=== PATIENT | female | born 1975 | race Caucasian/White ===

== ENCOUNTER 2024-09-06 02:18 | Inpatient (IN) ==
--- OUTSIDE RECORDS SUMMARY | 2024-09-06 02:25 | External Medical Summary | Summary of Care ---
Author Name Unknown Organization [facility] [address] [facility] [address] Phone [phone] Care Team Providers Care Swaging Machine Operator Name Role Phone Lu Martinez PA-C Primary Care Provider [phone] Reason for Visit * Reason Comments eRx-Medication Refill Encounter Details Date Type Department Care Team (Late st Contact Info) Description 05/24/2024 Refill Family Practice [facility] [address] [facility] [place] [address] Lu Martinez PA-C [address] [facility] [place] [address] Encounter for initial prescription of contraceptive pills Allergies No known active allergiesdocumented as of this encounter (statuses as of 05/26/2024) Medications Medication Sig Dispensed Refills Start Date End Date Status Multiple Vitamin (MULTI VITAMIN DAILY) TABS Take by mouth. Active Levothyroxine Sodium 175 MCG Oral Tablet (Levoxyl)Indication s:Acquired hypothyroidism TAKE 1 TABLET BY MOUTH IN THE MORNING AT LEAST 30 MIN PRIOR TO BREAKFAST OR OTHER MEDS 90 Tablet 3 10/02/2023 Active Tri-Sprintec 0.18/0.215/0.25 MG-35 MCG Oral Tablet (Norgestim-Eth Estrad Triphasic)Indicatio ns:Encounter for initial prescription of contraceptive pills TAKE 1 TABLET BY MOUTH ONCE DAILY IN THE MORNING 28 Tablet 11 05/26/2024 Active Tri-Sprintec 0.18/0.215/0.25 MG-35 MCG Oral Tablet (Norgestim-Eth Estrad Triphasic)Indicatio ns:Encounter for initial prescription of contraceptive pills TAKE 1 TABLET BY MOUTH ONCE DAILY IN THE MORNING 28 Tablet 11 07/14/2023 4 Discontinued documented as of this encounter (statuses as of 05/26/2024) Active Problems Problem Noted Date Diagnosed Date Acquired hypothyroidism 10/09/2017 ADVANCE DIRECTIVE INFORMATION 07/20/2014 Overview: No, Advance Directive brochure offered , patient declined. OTHER ACNE(aka ACNE) 04/17/2004 documented as of this encounter (statuses as of 05/26/2024) Resolved Problems Problem Noted Date Diagnosed Date Resolved Date Gestational diabetes 09/28/2014 015 Overview: Orders placed for testing supplies and air traffic coordinator consult Abnormal glucose in , antepartum 09/20/2014 10/01/2014 Overview: Elevated glucola. 3hr GTT ordered Advanced maternal age (AMA) in 05/05/2014 01/04/2015 Overview: Desires genetic testing. MFM referral placed. Negative [id number] MSAFP after 15wks-negative Desires BTL if she should require c/s for delivery. Hypothyroid in , antepartum 05/05/2014 01/04/2015 Overview: Taking 137mcg levothyroxine at NOB visit, dose just decreased from 175mcg 04/09/14 for TSH=0.09 05/05/14: TSH=4.63. Dose increased to 150mcg daily 06/08/14: TSH=11.56. Dose increased to 200mcg daily 07/02/14: TSH =0.35 09/17/14: TSH=0.15. Dose decreased to 175mcg daily 11/02/14: TSH=0.49 Abnormal maternal glucose to lerance, complicating , childbirth, or the puerperium, unspecified as to episode of care 05/10/2009 05/05/2014 Overview: 1 hour glu = 148, 3 hour gtt - [phone] - one abn value Bacterial infection due to S treptococcus, group B 12/13/2008 05/05/2014 Overview: GBS UTI at NOB visit. Rx given. BRUNO negative Abx in labor Normal , first 12/10/200808/29 Overview: Quad screen neg Patient received flu vaccine. 04/27/2009 Nina Kee LPN Patient received H1N1 vaccine. 05/23/2009 Milvia Townsend, RN INFORMATION 02/03/2004 10/09/2017 Overview: Blod type A, Rh positive HYPOTHYROIDISM NOS 11/02/2002 6 Overview: Check TSH every trimester Pt taking levoxyl 175mcg daily starting 02/18-repeat TSH in 4-6w 03/16/09 TSH 5.19 --- increase to 200mcg and repeat 04/13 wnl 07/04 - wnl documented as of this encounter (statuses as of 05/26/2024) Immunizations Name Administration Dates Next Due COVID-19 mRNA, LNP-s, No Pre serve, 2-Dose Series (Parking Panda) 06/30/2021 Covid-19 Ad26, Single Dose (Copperfasten/J&J) 10/26/2020 DTaP Dipth/Tet/Acell Pertussis (Infanrix), Peds 07/30/2009 H1N1 2009 Influenza, IM 05/23/2009 PPD 04/11/2007 Seasonal Influenza Vac., MDV , IM, 0.5 mL (Fluzone) 06/08/2014,04/17/2010,04/27/2009 Seasonal Influenza, PF, 6 M & above, IM , (FluLaval or Fluzone) 05/18/2023,05/05/2022,05/20/2021,2019,05/23/2019,05/29/2018,05/25/2017 Seasonal Influenza, Quadriva lent, No Preserve, IM 05/26/2016 TD, Preservative Free 10/04/2005 TDAP (age 10 and older)(Boostrix) 12/15/2014 documented as of this encounter Social History Tobacco Use Types Packs/Day Years Used Date Smoking Tobacco: Never Smokeless Tobacco: Never Alcohol Use Standard Drinks/Week Comments Yes 0 (1 standard drink = 0.6 oz pur e alcohol) Occas. AUDIT-C Answer Date Recorded Frequency of Alcohol Consumption Monthly or less 01/14/2020 Average Number of Drinks Not on file 020 Frequency of Binge Drinking Not on file 12/27 Hunger Vital Sign Answer Date Recorded Within the past 12 months, y ou worried that your food would run out before you got the money to buy more. Never true 06/23/20 23 Within the past 12 months, t he food you bought just didn't last and you didn't have money to get more. Never true 06/23/2023 Childcare Answer Date Recorded Do you feel overwhelmed with taking care of a child, family member or friend? Yes 06/23/2023 Does your family need help f inding childcare? (Household - for ages 0-17 years) Not on file 06/23/2023 Clothing Answer Date Recorded Have you been unable to get clothing when it was really needed? No 06/23/2023 Is your family able to get c lothes or diapers when needed? (Household - for ages 0-17 years) Not on file 06/23/2023 Personal Safety Answer Date Recorded Do you feel unsafe or have concerns for your saf ety? No 06/23/2023 Do you have concerns for you r family's safety? (Household - for ages 0-17 years) Not on file 06/23/2023 Utilities Answer Date Recorded Do you have trouble paying y our heating, water, or electric bill? No 06/23/2023 Is your family able to pay t he heat, water, or electric bill? (Household - for ages 0-17 years) Not on file 06/23/2023 Does your family have access to good internet? (Household - for ages 0-17 years) Not on file 06/23/2023 Employment Status Answer Date Recorded Are you unemployed or without regular income? No 06/23/2023 Does the household have a re gular source of income? (Household - for ages 0-17 years) Not on file 06/23/2023 Social Connections Answer Date Recorded How often do you feel lonely or isolated from th ose around you? Never 06/23/2023 Financial Resource Strain Answer Date R ecorded Do you have any trouble payi ng for your medications, or do you think you might in the future? No 06/23/2023 Does your family have troubl e paying for medicine? (Household - for ages 0-17 years) Not on file 06/23/2023 Transportation Needs Answer Date Record ed READ ONLY Do you have troubl e getting a ride to medical visits or work? Never True 06/23/2023 Does your family have a hard time getting a ride to doctors visits? (Household - for ages 0-17 years) Not on file 06/23/2023 Has lack of transportation k ept you from medical appointments, meetings, work, or from getting things needed for daily living? Check all that apply. (Adult - for ages 18 years and over) Not on file 06/23/2023 Do you (or your family) have trouble finding or paying for a ride (transportation)? (Household - for ages 0-17 years) Not on file 06/23/2023 Housing Stability Answer Date Recorded Do you currently live in a s helter or have no steady place to sleep at night? No 06/23/2023 READ ONLY Do you think you a re at risk of becoming homeless? No 06/23/2023 Does your family worry about paying for your home or becoming homeless? (Household - for ages 0-17 years) Not on file 1 08/23/2022 Are you homeless or worried that you might be in the future? (Adult - for ages 18 years and over) Not on file Are you (or your family) micheal eless or worried that you might be in the future? (Household - for ages 0-17 years) Not on file Food Insecurity Answer Date Recorded Do you need food for this week? No 06/23/2023 Are you able to get enough f ood for your family? (Household - for ages 0-17 years) Not on file 06/23/2023 Does your family need food t his week? (Household - for ages 0-17 years) Not on file 06/23/2023 Do you always have enough fo od for your family? (Household - for ages 0-17 years) Not on file 06/23/2023 Sex and Gender Information Value Date Recorded Sex Assigned at Female 06/23/2023 10:14 AM EST Gender Identity Female 06/23/2023 10:14 AM EST Sexual Orientation Not on file Job Start Date Occupation Industry Not on file Not on file Not on file documented as of this encounter Miscellaneous Notes * Telephone Encounter - Lu Martinez PA-C - 05/26/2024 7:59 AM EDTSigned Prescriptions: Disp Refills Tri-Sprintec 0.18/0.215/0.25 MG-35 MCG Ora*28 Tab*11 Sig: TAKE 1 TABLET BY MOUTH ONCE DAILY IN THE MORNING Authorizing Provider: LU MARTINEZ * Telephone Encounter - Eric Ross [facility] - 05/26/2024 2:23 AM EDTPending Prescriptions: Disp Refills Tri-Sprintec 0.18/0.215/0.25 MG-35 MCG Ora*28 Tab*11 Sig: TAKE 1 TABLET BY MOUTH ONCE DAILY IN THE MORNING * Telephone Encounter - Eric Ross [facility] - 05/26/2024 2:20 AM EDT ADDENDUM: A. Left breast, US-guided core biopsy: Benign breast with a portion of benign cyst wall and sclerosing adenosis. Imaging and pathology are concordant. Resume bilateral screening mammogram due March 2025. Benign biopsy results and follow-up recommendations were relayed to and understood by the patient by at 3:38 p.m. on May 02, 2024. Signed by Malorie Jo MD on 05/02/2024 15:57 Birads 4 with recent mammogram. Biopsy neg result with suspicious mass. Right side has masses whichare suspected to be benign. Will pend order for OCP's for review and approval if appropriate. Thanks Eric Ross [facility] Clinical Pharmacist Telepharmacy [phone] 05/26/2024 2:23 AM documented in this encounter Plan of Treatment Upcoming Encounters Date Type Department Care Team (Late st Contact Info) Description 04/23/2025 11:15 AM EDT Imaging Radiology [address] [place] [address] Health Maintenance Due Date Last Done Comments Hepatitis C Screening 1994 HPV/Co-Test 2006 Depression Screening 03/05/2018 03/05/2017 Cologuard 2021 Colonoscopy 2021 Colorectal Cancer Screening 2021 Fecal Occult Blood Test 2021 Sigmoidoscopy 2021 COVID-19 Vaccine ( season) 2024 06/30/2021, 10/26/2020 Influenza Vaccine (FLU shot) (#1) 2024 05/18/2023, 05/05/2022, 05/20/2021, Additional history exists Diabetes Screening 05/22/2024 05/22/2021, 1 07/30/2013, 02/01/2012, Additional history exists TSH 09/14/2024 09/14/2023, 12/0 12/2022, 06/29/2022, Additional history exists DTap/Tdap Vaccines (8 - Td or Tdap) 12/15/2024 12/15/2014, 07/30/2009, 10/04/2005, Additional history exists Cervical Cancer Screening 04/19/2025 Pap Smear 04/19/2025 04/19/2022, 02/27, 03/01/2016, Additional history exists Mammogram 04/23/2025 04/23/2024, 03/30, 04/18/2023, Additional history exists Lipid Panel 05/22/2026 05/22/2021, 03/2016, 04/17/2010, Additional history exists Hepatitis B Vaccine Completed 09/16/1993, 04/22/1993, 03/11/1993 HPV (Gardasil) Vaccine Aged Out No lo nger eligible based on patient's age to complete this topic MENINGOCOCCAL (MENACTRA/MENVEO) Aged Out No longer eligible based on patient's age to complete this topic Pneumococcal Vaccine: Pediatrics (0 to 5 Years) and At-Risk Patients (6 to 64 Years) Aged Out No longer eligible based on patient's age to complete this topic documented as of this encounter Medical Devices Not on filedocumented as of this encounter Visit Diagnoses Diagnosis Encounter for initial prescription of contraceptive pills General counseling for prescription of oral contraceptives Screening mammogram for breast cancer documented in this encounter Care Teams Swaging Machine Operator Relationship Specialty Start Date End Date Lu Martinez PA-C [address] [place] [address] PCP - General Physician Lpn Cma 04/12/23 documented as of this encounter
--- OUTSIDE RECORDS SUMMARY | 2024-09-06 02:25 | External Medical Summary | Summary of Care ---
Author Name Unknown Organization [facility] [address] [place] [address] Phone [phone] Care Team Providers Care Manager Physical Name Role Phone Lu Martinez PA-C Primary Care Provider [phone] Reason for Visit * Reason Onset Date Comments Order Request 04/21/2024 Encounter Details Date Type Department Care Team (Late st Contact Info) Description 04/21/2024 Telephone Radiology, [facility] [address] [place] [address] Requisition, External Radiology [address] [place] [address] Order Request Allergies No known active allergiesdocumented as of this encounter (statuses as of 04/21/2024) Medications Medication Sig Dispensed Refills Start Date End Date Status Multiple Vitamin (MULTI VITAMIN DAILY) TABS Take by mouth. Active Tri-Sprintec 0.18/0.215/0.25 MG-35 MCG Oral Tablet (Norgestim-Eth Estrad Triphasic)Indications: Encounter for initial prescription of contraceptive pills TAKE 1 TABLET BY MOUTH ONCE DAILY IN THE MORNING 28 Tablet 11 07/14/2023 Active Levothyroxine Sodium 175 MCG Oral Tablet (Levoxyl)Indications:A cquired hypothyroidism TAKE 1 TABLET BY MOUTH IN THE MORNING AT LEAST 30 MIN PRIOR TO BREAKFAST OR OTHER MEDS 90 Tablet 3 10/02/2023 Active documented as of this encounter (statuses as of 04/21/2024) Active Problems Problem Noted Date Diagnosed Date Acquired hypothyroidism 10/09/2017 ADVANCE DIRECTIVE INFORMATION 07/20/2014 Overview: No, Advance Directive brochure offered , patient declined. OTHER ACNE(aka ACNE) 04/17/2004 documented as of this encounter (statuses as of 04/21/2024) Resolved Problems Problem Noted Date Diagnosed Date Resolved Date Gestational diabetes 09/28/2014 015 Overview: Orders placed for testing supplies and cheesemaker consult Abnormal glucose in , antepartum 09/20/2014 10/01/2014 Overview: Elevated glucola. 3hr GTT ordered Advanced maternal age (AMA) in 05/05/2014 01/04/2015 Overview: Desires genetic testing. MFM referral placed. Negative [id number] MSAFP after 15wks-negative Desires BTL if she [...] glu = 148, 3 hour gtt - [phone] - one abn value Bacterial infection due [...] as of this encounter (statuses as of 04/21/2024) Immunizations Name Administration Dates Next Due COVID-19 mRNA, LNP-s, No Pre serve, 2-Dose Series (Platial) 06/30/2021 Covid-19 Ad26, Single Dose (Lockbox/J&Placeling) 10/26/2020 DTaP Dipth/Tet/Acell Pertussis (Infanrix), Peds 07/30/2009 H1N1 2009 Influenza, IM 05/23/2009 PPD 04/11/2007 Seasonal Influenza, PF, 6 M & above, IM , (FluLaval or Fluzone) 05/18/2023,05/05/2022,05/20/2021,2019,05/23/2019,05/29/2018,05/25/2017 Seasonal Influenza, Quadriva lent, No Preserve, IM 05/26/2016 Seasonal Influenza, Trivalen t, (IIV3), with Preserv, (Fluzone) 06/08/2014,04/17/2010,04/27/2009 TD, Preservative Free 10/04/2005 TDAP (age 10 [...] encounter Miscellaneous Notes * Telephone Encounter - Kayley Dubon OSA - 04/21/2024 4:[address] bilateral diagnostic mammogram and US breast limited bilateral documented in this encounter Plan of Treatment Upcoming Encounters Date Type Department Care Team (Late st Contact Info) Description 04/23/2024 7:30 AM EDT Imaging Radiology [address] [place] [address] 04/23/2024 8:00 AM EDT Imaging Radiology [address] [place] [address] 04/23/2025 11:15 AM EDT Imaging Radiology [address] [place] [address] Scheduled Orders Name Type Priority Associated Diagnoses Orde r Schedule MAMMOGRAM DIAGNOSTIC BILATERAL Medical Imaging Routine Abnormal mammogram Expected: 04/22/2024, Expires: 05/21/2025 Health Maintenance Due Date Last Done Comments [...] 04/19/2022, 02/27, 03/01/2016, Additional history exists Mammogram 04/21/2025 04/21/2024, 03/30, 04/17/2022, Additional history exists Lipid Panel 05/22/2026 05/22/2021, [...] as of this encounter Visit Diagnoses Diagnosis Abnormal mammogram- Primary Abnormal mammogram, unspecified Screening mammogram for breast cancer documented in this encounter Care Teams Manager Physical Relationship Specialty Start Date End Date Juan Lu MARIKA Chawla [address] [place] [address] PCP - General Physician Rn Clinical Coordinator 04/12/23 documented as of this encounter
--- OUTSIDE RECORDS SUMMARY | 2024-09-06 02:25 | External Medical Summary | Summary of Care ---
Author Name Unknown Organization [facility] Address [address] [facility] [place] [address] Phone [phone] Care Team Providers Care Search Engine Marketing Specialist Name Role Phone Lu Martinez PA-C Primary Care Provider [phone] Encounter Details Date Type Department Care Team (Late st Contact Info) Description 09/04/2024 Orders Only Family Practice [facility] [address] [place] [place] [address] Lu Martinez PA-C [address] [place] [place] [address] Allergies No known active allergiesdocumented as of this encounter (statuses as of 09/04/2024) Medications Multiple Vitamin (MULTI VITAMIN DAILY) TABS Take by mouth. Active Levothyroxine Sodium 175 MCG Oral Tablet (Levoxyl)Indicatio ns:Acquired hypothyroidism TAKE 1 TABLET BY MOUTH IN THE MORNING AT LEAST 30 MIN PRIOR TO BREAKFAST OR OTHER MEDS 90 Tablet 3 4 Active Tri-Sprintec 0.18/0.215/0.25 MG-35 MCG Oral Tablet (Norgestim-Eth Estrad Triphasic)Indicati ons:Encounter for initial prescription of contraceptive pills TAKE 1 TABLET BY MOUTH ONCE DAILY IN THE MORNING 28 Tablet 11 4 Active documented as of this encounter (statuses as of 09/04/2024) Active Problems Problem Noted Date Diagnosed Date Acquired hypothyroidism 10/09/2017 OTHER ACNE(aka ACNE) 04/17/2004 documented as of this encounter (statuses as of 09/04/2024) Resolved Problems Problem Noted Date Diagnosed Date Resolved Date Gestational diabetes 09/28/2014 015 Overview (09/28/2014): Orders placed for testing supplies and cylinder block mechanic consult Abnormal glucose in , antepartum 09/20/2014 10/01/2014 Overview (09/20/2014): Elevated glucola. 3hr GTT ordered ADVANCE DIRECTIVE INFORMATION 07/20/2014 06/01/2024 Overview (04/06/2005): No, Advance Directive brochure offered , patient declined. Advanced maternal age (AMA) in 05/05/2014 01/04/2015 Overview (08/26/2014): Desires genetic testing. MFM referral placed. Negative [id number] MSAFP after 15wks-negative Desires BTL if she should require c/s for delivery. Hypothyroid in , antepartum 05/05/2014 01/04/2015 Overview (11/03/2014): Taking 137mcg levothyroxine at NOB visit, dose just decreased from 175mcg 04/09/14 for TSH=0.09 05/05/14: TSH=4.63. Dose increased to 150mcg daily 06/08/14: TSH=11.56. Dose increased to 200mcg daily 07/02/14: TSH =0.35 09/17/14: TSH=0.15. Dose decreased to 175mcg daily 11/02/14: TSH=0.49 Abnormal maternal glucose to lerance, complicating , childbirth, or the puerperium, unspecified as to episode of care 05/10/2009 05/05/2014 Overview (05/16/2009): 1 hour glu = 148, 3 hour gtt - [phone] - one abn value Bacterial infection due to S treptococcus, group B 12/13/2008 05/05/2014 Overview (01/06/2009): GBS UTI at NOB visit. Rx given. BRUNO negative Abx in labor Normal , first 12/10/200808/29 Overview (05/23/2009): Quad screen neg Patient received flu vaccine. 04/27/2009 Nina Kee LPN Patient received H1N1 vaccine. 05/23/2009 Milvia Townsend, RN INFORMATION 02/03/2004 10/09/2017 Overview (02/03/2004): Blod type A, Rh positive HYPOTHYROIDISM NOS 11/02/2002 6 Overview (07/07/2009): Check TSH every trimester Pt taking levoxyl 175mcg daily starting 02/18-repeat TSH in 4-6w 03/16/09 TSH 5.19 --- increase to 200mcg and repeat 04/13 wnl 07/04 - wnl documented as of this encounter (statuses as of 09/04/2024) Immunizations Name Administration Dates Next Due COVID-19 mRNA, LNP-s, No Pre serve, 2-Dose Series ([employer]) 06/30/2021 Covid-19 Ad26, Single Dose (Capeco/J&J) 10/26/2020 DTaP Dipth/Tet/Acell Pertussis (Infanrix), Peds 07/30/2009 [...] ages 0-17 years) Not on file 06/23/2023 Comments No Sex and Gender Information Value Date Recorded Sex Assigned at Female 06/23/2023 10:14 AM EST Legal Sex Female 7:18 AM EST Gender Identity Female 06/23/2023 10:14 AM EST Sexual Orientation Not on file 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 Not on file Not on file documented as of this encounter Plan of Treatment Upcoming Encounters Date Type Department Care Team (Late st Contact Info) Description 04/23/2025 11:15 AM EDT Imaging Radiology [address] [place] [address] Health Maintenance Due Date Last Done Comments [...] 02/01/2012, Additional history exists TSH 09/14/2024 09/14/2023, 12/2022, 06/29/2022, Additional history exists DTap/Tdap Vaccines [...] 5 Years) and At-Risk Patients (6 to 18 Years and 19+ Years) Aged Out No longer eligib le based on patient's age to complete this topic documented as of this encounter Medical Devices Not on filedocumented as of this encounter Procedures Procedure Name Priority Date/Time Associated Diagnosis Comments XR CHEST 1 VIEW Routine 09/02/2024 documented in this encounter Results * XR CHEST 1 VIEW (09/02/2024) Anatomical Region Laterality Modality Chest Other 09/02/2024 Luis Dan MD RADIOLOGY (RAD GENE RAL) Final Result documented in this encounter Care Teams Search Engine Marketing Specialist Relationship Specialty Start Date End Date JuanOctober Denton, MARIKA [address] [place], [place] [address] PCP - General Physician Miner Helper 04/12/23 documented as of this encounter
--- OUTSIDE RECORDS SUMMARY | 2024-09-06 02:25 | External Medical Summary | Summary of Care ---
Author Name Unknown Organization [facility] Address [address] [facility] [address] Phone [phone] Care Team Providers Care Concrete Engineer Name Role Phone Lu Martinez PA-C Primary Care Provider [phone] Reason for Visit * Reason Onset Date Comments Information 04/28/2024 Encounter Details Date Type Department Care Team (Late st Contact Info) Description 04/28/2024 Telephone Radiology [facility] [address] [facility] [place] [address] Bryan Hobbs III, MD [address] [place] [address] Information Allergies No known active allergiesdocumented as of this encounter (statuses as of 07/28/2024) Medications Multiple Vitamin (MULTI VITAMIN DAILY) TABS Take by mouth. Active Levothyroxine Sodium 175 MCG Oral Tablet (Levoxyl)Indicatio ns:Acquired hypothyroidism TAKE 1 TABLET BY MOUTH IN THE MORNING AT LEAST 30 MIN PRIOR TO BREAKFAST OR OTHER MEDS 90 Tablet 3 4 Active documented as of this encounter (statuses as of 07/28/2024) Active Problems Problem Noted Date Diagnosed Date Acquired hypothyroidism 10/09/2017 OTHER ACNE(aka ACNE) 04/17/2004 documented as of this encounter (statuses as of 07/28/2024) Resolved Problems Problem Noted Date Diagnosed Date Resolved Date Gestational diabetes 09/28/2014 015 Overview (09/28/2014): Orders placed for testing supplies and primary school teacher librarian consult Abnormal glucose in , antepartum 09/20/2014 10/01/2014 Overview (09/20/2014): Elevated glucola. 3hr GTT ordered ADVANCE DIRECTIVE INFORMATION 07/20/2014 06/01/2024 Overview (04/06/2005): No, Advance Directive brochure offered , patient declined. Advanced maternal age (AMA) in 05/05/2014 01/04/2015 Overview (08/26/2014): Desires genetic testing. MFM referral placed. Negative [id number] MSAFP after 15wks-negative Desires BTL if she [...] glu = 148, 3 hour gtt - [phone] - one abn value Bacterial infection due [...] as of this encounter (statuses as of 07/28/2024) Immunizations Name Administration Dates Next Due COVID-19 mRNA, LNP-s, No Pre serve, 2-Dose Series ([employer]) 06/30/2021 Covid-19 Ad26, Single Dose ([employer] [employer]) 10/26/2020 DTaP Dipth/Tet/Acell Pertussis (Infanrix), Peds 07/30/2009 [...] encounter Miscellaneous Notes * Telephone Encounter - Jackie Agustin RDMS - 04/28/2024 3:56 PM EDT Following completion of left breast ultrasound guided core biopsy, discharge instructions were provided and patient expressed understanding. Specimen was delivered to the lab at 3:00pm. documented in this encounter Plan of Treatment Upcoming Encounters Date Type Department Care Team (Late st Contact Info) Description 04/23/2025 11:15 AM EDT Imaging Radiology [address] [place] [address] Health Maintenance Due Date Last Done Comments [...] Not on filedocumented as of this encounter Care Teams Concrete Engineer Relationship Specialty Start Date End Date JuanOctober MARIKA Chawla [address] [place] [address] PCP - General Physician Parts Sales Counterperson 04/12/23 documented as of this encounter
--- OUTSIDE RECORDS SUMMARY | 2024-09-06 02:25 | External Medical Summary | Summary of Care ---
Author Name Unknown Organization [facility] Address [address] [place] [address] Phone [phone] Care Team Providers Care Diesel Service Journeyman Name Role Phone Lu Martinez PA-C Primary Care Provider [phone] Encounter Details Date Type Department Care Team (Late st Contact Info) Description 04/14/2024 Orders Only Outcomes Research Department [address] [place] [address] Charley Carroll CHRA [employer] Other*[id number] Allergies No known active allergiesdocumented as of this encounter (statuses as of 04/14/2024) Medications Medication Sig Dispensed Refills Start Date [...] as of this encounter (statuses as of 04/14/2024) Active Problems Problem Noted Date Diagnosed Date Acquired hypothyroidism 10/09/2017 ADVANCE DIRECTIVE INFORMATION 07/20/2014 Overview: No, Advance Directive brochure offered , patient declined. OTHER ACNE(aka ACNE) 04/17/2004 documented as of this encounter (statuses as of 04/14/2024) Resolved Problems Problem Noted Date Diagnosed Date Resolved Date Gestational diabetes 09/28/2014 015 Overview: Orders placed for testing supplies and general surgeon consult Abnormal glucose in , antepartum 09/20/2014 10/01/2014 Overview: Elevated glucola. 3hr GTT ordered Advanced maternal age (AMA) in 05/05/2014 01/04/2015 Overview: Desires genetic testing. MFM referral placed. Negative [id number] MSAFP after 15wks-negative Desires BTL if she [...] glu = 148, 3 hour gtt - [phone] - one abn value Bacterial infection due [...] as of this encounter (statuses as of 04/14/2024) Immunizations Name Administration Dates Next Due COVID-19 mRNA, LNP-s, No Pre serve, 2-Dose Series ([employer]) 06/30/2021 Covid-19 Ad26, Single Dose ([employer]/J&Sim[employer]iVT) 10/26/2020 DTaP Dipth/Tet/Acell Pertussis (Infanrix), Peds 07/30/2009 [...] No 06/23/2023 Does the household have a [facility] health center[facility] source of income? (Household - for ages [...] Team (Late st Contact Info) Description 04/21/2024 12:30 PM EDT Imaging Radiology [facility] [address] [place] [address] Scheduled Orders Name Type Priority Associated Diagnoses Orde r Schedule MYCODE SUBSEQUENT ADULT Lab Routine My[employer] Research Other*[id number] Every 6 Months for 2 Occurrences starting 04/14/2024 until 05/04/2025 Health Maintenance Due Date Last Done Comments Hepatitis C Screening 1994 HPV/Co-Test 2006 Depression Screening 03/05/2018 03/05/2017 Cologuard 2021 Colonoscopy 2021 Colorectal Cancer Screening 2021 Fecal Occult Blood Test 2021 Sigmoidoscopy 2021 COVID-19 Vaccine ( season) 2024 06/30/2021, 10/26/2020 Influenza Vaccine (FLU shot) (#1) 2024 05/18/2023, 05/05/2022, 05/20/2021, Additional history exists Mammogram 04/18/2024 04/18/2023, 03/30, 04/13/2021, Additional history exists Diabetes Screening 05/22/2024 05/22/2021, 1 07/30/2013, 02/01/2012, Additional history exists TSH 09/14/2024 09/14/2023, 12/2022, 06/29/2022, Additional history exists DTap/Tdap Vaccines (8 - Td or Tdap) 12/15/2024 12/15/2014, 07/30/2009, 10/04/2005, Additional history exists Cervical Cancer Screening 04/19/2025 Pap Smear 04/19/2025 04/19/2022, 02/27, 03/01/2016, Additional history exists Lipid Panel 05/22/2026 05/22/2021, [...] as of this encounter Visit Diagnoses Diagnosis [employer] Research Other*[id number] Screening mammogram for breast cancer documented in this encounter Care Teams Diesel Service Journeyman Relationship Specialty Start Date End Date JuanOctober [place], PAKimC [address] [place] [address] PCP - General Physician Woven Wood Shade Assembler 04/12/23 documented as of this encounter
--- OUTSIDE RECORDS SUMMARY | 2024-09-06 02:25 | External Medical Summary | Summary of Care ---
Author Name Unknown Organization [facility] Address [address] [facility] [address] Phone [phone] Care Team Providers Care E Commerce Retailer Name Role Phone Lu Martinez PA-C Primary Care Provider [phone] Reason for Visit * Reason Onset Date Comments Order Request 04/27/2024 Encounter Details Date Type Department Care Team (Late st Contact Info) Description 04/27/2024 Telephone Radiology [facility] [address] [facility] [place] [address] Lu Martinez PA-C [address] [place] [id number] Order Request Allergies No known active allergiesdocumented as of this encounter (statuses as of 04/28/2024) Medications Medication Sig Dispensed Refills Start Date [...] as of this encounter (statuses as of 04/28/2024) Active Problems Problem Noted Date Diagnosed Date Acquired hypothyroidism 10/09/2017 ADVANCE DIRECTIVE INFORMATION 07/20/2014 Overview: No, Advance Directive brochure offered , patient declined. OTHER ACNE(aka ACNE) 04/17/2004 documented as of this encounter (statuses as of 04/28/2024) Resolved Problems Problem Noted Date Diagnosed Date Resolved Date Gestational diabetes 09/28/2014 015 Overview: Orders placed for testing supplies and licensing coordinator consult Abnormal glucose in , antepartum 09/20/2014 10/01/2014 Overview: Elevated glucola. 3hr GTT ordered Advanced maternal age (AMA) in 05/05/2014 01/04/2015 Overview: Desires genetic testing. MFM referral placed. Negative [id number]-ooytv MSAFP after 15wks-negative Desires BTL if she [...] glu = 148, 3 hour gtt - [phone] - one abn value Bacterial infection due [...] as of this encounter (statuses as of 04/28/2024) Immunizations Name Administration Dates Next Due COVID-19 mRNA, LNP-s, No Pre serve, 2-Dose Series ([employer]) 06/30/2021 Covid-19 Ad26, Single Dose ([employer]/J&J) 10/26/2020 DTaP Dipth/Tet/Acell Pertussis (Infanrix), Peds 07/30/2009 [...] encounter Miscellaneous Notes * Telephone Encounter - Priscilla Paul RDMS - 04/27/2024 8:07 AM EDT Order pended as recommended per 04.23.24 diagnostic work-up. Biopsy scheduled 04.28.24. documented in this encounter Plan of Treatment Upcoming Encounters Date Type Department Care Team (Late st Contact Info) Description 04/23/2025 11:15 [place] [address] Pending Results Name Type Priority Associated Diagnoses Date /Time US GUIDED BREAST BIOPSY LEFT Medical Imaging Routine Abnormal mammogram 04/28/2024 2:22 PM EDT Scheduled Orders Name Type Priority Associated Diagnoses Orde r Schedule US GUIDED BREAST BIOPSY LEFT Medical Imaging Routine Abnormal mammogram Expected: 04/27/2024, Expires: 07/27/2024 Health Maintenance Due Date Last Done Comments [...] 02/01/2012, Additional history exists TSH 09/14/2024 09/14/2023, 12/12/2022, 06/29/2022, Additional history exists DTap/Tdap Vaccines (8 - Td or Tdap) 12/15/2024 12/15/2014, 07/30/2009, 10/04/2005, Additional history exists Cervical Cancer Screening 04/19/2025 Pap Smear 04/19/2025 04/19/2022, 02/27, 03/01/2016, Additional history exists Mammogram 04/23/2025 04/23/2024, 03/30, 04/18/2023, Additional history exists Lipid Panel 05/22/2026 05/22/2021, 09/0 03/2016, 04/17/2010, Additional history exists Hepatitis B [...] cancer documented in this encounter Care Teams E Commerce Retailer Relationship Specialty Start Date End Date Juan October MARIKA Chawla [address] [place] [address] PCP - General Physician Credentialing Coordinator 04/12/23 documented as of this encounter
--- OUTSIDE RECORDS SUMMARY | 2024-09-06 02:25 | External Medical Summary | Summary of Care ---
Author Name Unknown Organization [facility] Address [address] [facility] [address] Phone [phone] Care Team Providers Care Tape Editor Name Role Phone Lu Martinez PA-C Primary Care Provider [phone] Reason for Visit * Reason Onset Date Comments Order Request 04/27/2024 Encounter Details Date Type Department Care Team (Late st Contact Info) Description 04/27/2024 Telephone Radiology [facility] [address] [facility] [place] [address] Lu Martinez PA-C [address] [place] [address] Order Request Allergies No known active allergiesdocumented as of this encounter (statuses as of 04/27/2024) Medications Medication Sig Dispensed Refills Start Date [...] as of this encounter (statuses as of 04/27/2024) Active Problems Problem Noted Date Diagnosed Date Acquired hypothyroidism 10/09/2017 ADVANCE DIRECTIVE INFORMATION 07/20/2014 Overview: No, Advance Directive brochure offered , patient declined. OTHER ACNE(aka ACNE) 04/17/2004 documented as of this encounter (statuses as of 04/27/2024) Resolved Problems Problem Noted Date Diagnosed Date Resolved Date Gestational diabetes 09/28/2014 015 Overview: Orders placed for testing supplies and reaming machine operator consult Abnormal glucose in , antepartum 09/20/2014 10/01/2014 Overview: Elevated glucola. 3hr GTT ordered Advanced maternal age (AMA) in 05/05/2014 01/04/2015 Overview: Desires genetic testing. MFM referral placed. Negative [id number]-zkhab MSAFP after 15wks-negative Desires BTL if she [...] glu = 148, 3 hour gtt - [phone] - one abn value Bacterial infection due [...] as of this encounter (statuses as of 04/27/2024) Immunizations Name Administration Dates Next Due COVID-19 mRNA, LNP-s, No Pre serve, 2-Dose Series ([employer]) 06/30/2021 Covid-19 Ad26, Single Dose ([employer]/J&J) 10/26/2020 DTaP Dipth/Tet/Acell Pertussis (Infanrix), Peds 07/30/2009 [...] Team (Late st Contact Info) Description 04/28/2024 1:30 PM EDT [address] [address] 04/28/2024 1:30 PM EDT Imaging Radiology [address] [place] [address] 04/23/2025 11:15 AM EDT Imaging Radiology [address] [place] [address] Scheduled Orders Name Type Priority Associated Diagnoses [...] cancer documented in this encounter Care Teams Tape Editor Relationship Specialty Start Date End Date JuanOctober MARIKA Chawla [address] [place] [address] PCP - General Physician Auricular Detoxification Specialist 04/12/23 documented as of this encounter
--- NOTE | 2024-09-06 02:39 | Emergency Department Note ---
Impression & Plan Multifocal pneumonia, Left lower lobe pneumonia, Severe sepsis, Acute hypotension, Influenza A ED Provider Note Name: EDIL CHAMPION Age: 49 Sex: Female Arrives Via: Walk-In Informant: Patient ED Provider: Dario Torrez MD Chief Complaint: Illness Impression: As per impressions above Medical Decision Makin-year-old female arrives for evaluation of illness. Patient has been sick for 9 to 10 days initially testing positive for influenza. Rapidly worsening today. Patient arrives hypotensive, tachycardic and significant respiratory distress. Diffuse wheezing on arrival. Patient workup for sepsis with blood cultures and lactic acid obtained. She was given 2 L normal saline bolus IV consistent with ideal body weight greater than 30 treatment. Chest x-ray does reveal multifocal pneumonia primarily on the left side thus she was empirically given Zosyn for broad-spectrum coverage. Laboratory workup does show an elevated white blood cell count but fortunately not a significant elevated lactic acid. Following fluid bolus blood pressure is significantly improved. As she was given an hour- long nebulizer she developed a pretty significant tachycardia in the 150s. Repeat EKG does show sinus tachycardia. Noted to be febrile at this point as well. Hospitalist at bedside during this point. Given the degree of discomfort though she is having in the albarran to tachycardia and then noting that her mother had a history of DVT it was felt that CT PE study would be indicated. This was still pending at time of admission to the floor however does not show any large PE but does show significant inflammatory findings. Of note patient was a bit hesitant to take Tamiflu given the possible risks. I discussed that in the setting of severe respiratory distress despite already being a week and a half and infection it would be reasonable to start Tamiflu to try and decrease further risk. Patient is having a fair amount of pain on the left side of her chest. CT PE study was mentioned as above. She was given some IV pain medications while here. Triage/Nursing Notes reviewed by Me Sepsis reevaluation. Patient was reevaluated at 5 AM on 2.9.25 blood pressure is stable. And sepsis reevaluation was completed by me. No indication for pressors at this time. Differential:Viral syndrome, otitis, pharyngitis, pneumonia, influenza, meningitis, urinary tract infection, sepsis, bacteremia, as well as other pathologies. Vital Signs: reviewed and remarkable for hypertensive, tachy Interventions: Normal saline bolus 2 L IV, Decadron 10 mg IV, DuoNeb 1 hour, Zosyn 4.5 g IV, Dilaudid 0.5 mg IV Labs:ED labs Reviewed by me and remarkable for elevated procalcitonin. Elevated white blood cell count Imagin view chest x-ray as per my interpretation. Multifocal pneumonia primarily through the left lung sprague. No pneumothorax. No significant effusion. CT angiography of the chest PE study. As per my informal interpretation. There is no large caliber PE appreciated. There are multifocal infiltrates throughout the left lung and some on the right lung. EKG:As per my interpretation. Indication shortness of breath. Sinus tachycardia 151 bpm and QTc of 510. There is no ectopy nor about ischemia. There are no previous EKGs for comparison. There is a bit of lateral ST depression consistent with rate. Cardiac/Tele Monitoring: Cardiac Monitoring: An Order was placed for continuous cardiac monitoring. The monitor shows a rate of 120 with a sinus tach rhythm. Consults:Discussed with Dr. France Diaz hospitalist service who evaluated and will admit patient Plan: Disposition:Hospitalization. Condition: Fair History of Present Illness: 49-year-old female arrives for evaluation illness. Patient has been sick for the last 9 to 10 days. She tested positive for influenza few days ago. Associated with cough, fevers, chills, lightheadedness. Over the last 24 hours no significant worsening in her cough. She has developed increasing left upper chest pain rating to her left shoulder and left back. Feels like she cannot take a deep breath. Denies any swelling in her legs calf. Denies any history of DVT or PE. Notes cough is dry and she has trouble catching her breath. Has lost much of her appetite and has been eating as much either. No recent antibiotics. Using Tylenol for fever control. Denies any falls, trauma, injuries. Denies any significant respiratory history. She has no history of smoking. Past Medical History: Hypothyroidism Home Medications: Levothyroxine, control Allergies: No known drug allergy Vitals:Blood Pressure: 94/68, Pulse 117, RR 20, T 36.4C, O2 97% on RA Physical Exam: GENERAL: Patient is ill appearing and in moderate distress. Dehydrated. Hoarse voice. RESPIRATORY: Moderate tachypnea/dyspnea with diffusely tight lung sounds and some mild crackles throughout though no overt wheeze CARDIOVASCULAR: Tachycardia.No murmur appreciated. GASTROINTESTINAL: Abdomen soft, non-tender, no peritonitis. EXTREMITIES: Normal motion all extremities, no cyanosis, no edema. NEUROLOGIC: Alert and oriented. No focal neurologic deficits appreciated SKIN: No rash, no jaundice, no diaphoresis. PSYCH: Appropriate GCS: 15 ED Course: Times/Reassessments: Patient's blood pressure improved significantly with IV fluids. She did develop a significant tachyarrhythmia. I suspect that heart rate increases a combination of discomfort, albuterol, sepsis and development of relatively significant fever EKG is consistent with sinus tachycardia as opposed to SVT or a flutter/fib. Critical Care: I have personally spent 45 minutes of critical care time in the direct management of this patient. Acute severe sepsis secondary to multifocal pneumonia requiring resuscitation.. This was a life/limb threatening event. This 45 minutes is in excess of all separately billable procedures. 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 Beliefs That Will Affect Care: None Current Living Situation: Spouse Other Information That Helps Us Care for You: No Feels Safe at Home: Yes Safety Concerns: Feels Safe At This Time Assistive Devices: Glasses Allergies Allergies Allergy/AdvReac Type Severity Reaction Status Date / Time No Known Allergies Allergy NONE Verified 12/16/14 19:59 Home Meds Home Medications Medication Instructions Recorded Confirmed Multivit/Min/Iron/Fol Ac/Pren 1 tab PO DAILY ##0 07/30/09 09/06/24 ( Vitamin) levothyroxine 175 mcg tablet 175 mcg PO DAILY ##0 12/15/14 09/06/24 norgestimate-ethinyl estradiol 1 tab PO DAILY 09/06/24 09/06/24 0.18 mg/0.215mg/0.25mg-35 mcg(28)tablet (Tri-Sprintec (28)) Results & Data (ED) Vital Signs Vital Signs - 24 hr 09/06/24 02:24 09/06/24 02:37 09/06/24 02:42 Temperature 36.4 C L Temperature Source Oral Pulse Rate 117 H 116 H 115 H Pulse Rate from SpO2 Sensor Respiratory Rate 20 22 Respiratory Effort / Characteristics Non-Labored Spontaneous Respiratory Depth Normal Respiratory Pattern Regular Blood Pressure 94/68 L Blood Pressure Mean 76 Blood Pressure Position Sitting Pulse Oximetry 97 97 Oxygen Delivery Method Room Air Room Air Sepsis Recent Fever Within 48 Hours Yes Sepsis New/Unexplained Change in Mental Status N/A Sepsis Action Taken by Nursing Physician Notified 09/06/24 02:45 09/06/24 03:00 09/06/24 03:21 Temperature Temperature Source Pulse Rate 136 H 134 H Pulse Rate from SpO2 Sensor 136 H Respiratory Rate 25 H 30 H Respiratory Effort / Characteristics Non-Labored Spontaneous Respiratory Depth Normal Respiratory Pattern Blood Pressure Blood Pressure Mean Blood Pressure Position Pulse Oximetry 97 98 Oxygen Delivery Method Room Air Room Air Sepsis Recent Fever Within 48 Hours Sepsis New/Unexplained Change in Mental Status Sepsis Action Taken by Nursing 09/06/24 03:23 09/06/24 03:23 09/06/24 03:24 Temperature Temperature Source Pulse Rate 128 H Pulse Rate from SpO2 Sensor 128 H Respiratory Rate 22 Respiratory Effort / Characteristics Respiratory Depth Respiratory Pattern Blood Pressure 113/93 113/93 Blood Pressure Mean 108 108 Blood Pressure Position Pulse Oximetry 99 Oxygen Delivery Method Room Air Sepsis Recent Fever Within 48 Hours Sepsis New/Unexplained Change in Mental Status Sepsis Action Taken by Nursing Laboratory Data 09/06/24 02:43 09/06/24 02:43 Lab Results 09/06/24 Range/Units 02:43 WBC 14.32 H (4.8-10.8) K/ul RBC 4.41 (4.20-5.40) M/uL Hgb 12.5 (12.0-16.0) g/dl Hct 36.2 L (37.0-47.0) % MCV 82.1 (80.0-100.0) fL MCH 28.3 (25.0-34.0) pg MCHC 34.5 (32.0-36.0) g/dL RDW Std Deviation 37.0 (36.4-46.3) fL RDW Coeff of Itzel 12.2 (11.5-14.5) % Plt Count 224 (130-400) K/uL MPV 10.0 (9.4-12.4) fL Immature Gran % (Auto) 0.5 % Neut % (Auto) 90.5 % Lymph % (Auto) 3.5 % [place] % (Auto) 5.3 % Eos % (Auto) 0.0 % Baso % (Auto) 0.2 % Neut # (Auto) 12.96 H (1.40-6.50) K/uL Lymph # (Auto) 0.50 L (1.20-3.40) K/uL [place] # (Auto) 0.76 H (0.11-0.59) K/uL Eos # (Auto) 0.00 (0.00-0.50) K/uL Baso # (Auto) 0.03 (0.00-0.20) K/uL Immature Gran # (Auto) 0.07 (0.01-0.20) K/uL APTT 30 (21-31) Seconds PTT Ratio 1.1 Sodium 132 L (136-145) mmol/L Potassium 3.1 L (3.5-5.1) mmol/L Chloride 94 L (98-107) mmol/L Carbon Dioxide 26 (21-32) mmol/L Anion Gap 12 H (3-11) BUN 13 (6-23) mg/dl Creatinine 0.98 (0.6-1.2) mg/dl Est Cr Clr Drug Dosing 71.1 ml/min eGFR 71.20 BUN/Creatinine Ratio 13.3 (10-20) Glucose 172 H (70-99(Fasting)) mg/dl Lactate 1.7 (0.4-2.0) mmol/L Calcium 9.1 (8.6-10.3) mg/dl Magnesium 1.6 L (1.7-2.4) mg/dl Total Bilirubin 0.9 (0.2-1.0) mg/dl Direct Bilirubin 0.3 H (0-0.2) mg/dl AST 28 (13-39) U/L ALT 20 (7-52) U/L Alkaline Phosphatase 63 (34-104) U/L Troponin I High Sens 5.5 (0-14) pg/ml Total Protein 7.5 (6.0-8.3) gm/dl Albumin 3.7 (3.4-5.0) gm/dl Procalcitonin 1.21 H (0-0.5) ng/ml TSH 0.801 (0.300-4.500) uIu/ml Administered Medications Magnesium Sulfate/Dextrose (Magnesium Sulfate / D5w) 1 gm in 100 mls @ 50 mls/hr IV Q2H DOMINGA Stop: 09/06/24 08:14 Last Admin: 09/06/24 07:07 Dose: 50 mls/hr Documented By: Infusion: 09/06/24 06:54 Dose: Infused Documented By: Admin: 09/06/24 04:54 Dose: 50 mls/hr Documented By: BO Potassium Chloride/Sodium Chloride (Normal Saline W/20 Meq Kcl) 20 meq in 1,000 mls @ 75 mls/hr IV .[id number] STA Stop: 09/06/24 17:36 Last Admin: 09/06/24 04:53 Dose: 75 mls/hr Documented By: BO Ketorolac Tromethamine (Ketorolac Tromethamine 15 Mg/Ml Vial) 15 mg IV Q6H PRN PRN Reason: Pain Stop: 09/11/24 04:19 Last Admin: 09/06/24 05:09 Dose: 15 mg Documented By: BO Levothyroxine Sodium (Levothyroxine Sodium 175 Mcg Tablet) 175 mcg PO DAILYBB [facility] Stop: 10/06/24 06:29 Last Admin: 09/06/24 06:18 Dose: 175 mcg Documented By: [id number] Discontinued Medications Acetaminophen (Acetaminophen 500 Mg Tab) Confirm Administered Dose 1,000 mg .ROUTE .STK-MED ONE Stop: 09/06/24 04:07 Last Admin: 09/06/24 04:21 Dose: Not Given Documented By: BO Acetaminophen (Acetaminophen 1000 Mg/100 Ml Iv) Confirm Administered Dose 1,000 mg IV .STK-MED ONE Stop: 09/06/24 04:08 Last Admin: 09/06/24 04:22 Dose: Not Given Documented By: BO Albuterol (Albut/Ipratrop 3mg/0.5mg Neb 3 Ml Vial) 12 ml NEB ONE ONE; Protocol Stop: 09/06/24 02:37 Last Admin: 09/06/24 03:22 Dose: 12 ml Documented By: BO Benzonatate (Benzonatate 100 Mg Capsule) 100 mg PO NOW STA Stop: 09/06/24 04:21 Last Admin: 09/06/24 04:55 Dose: 100 mg Documented By: BO Dexamethasone Sodium Phosphate (DexamethasonePf 10 Mg/Ml Vial) 10 mg IV NOW ONE Stop: 09/06/24 02:37 Last Admin: 09/06/24 03:20 Dose: 10 mg Documented By: BO Fentanyl Citrate (Fentanyl Citrate Pf 100 Mcg/2 Ml Vial) 75 mcg IV NOW STA Stop: 09/06/24 04:01 Last Admin: 09/06/24 04:12 Dose: 75 mcg Documented By: BO Guaifenesin (Guaifenesin 600 Mg Tabcr) 600 mg PO ONE STA Stop: 09/06/24 04:22 Last Admin: 09/06/24 04:55 Dose: 600 mg Documented By: BO Hydromorphone HCl (Hydromorphone Inj 0.5 Mg/0.5 Ml Syr) 0.5 mg IV NOW STA Stop: 09/06/24 03:31 Last Admin: 09/06/24 03:41 Dose: 0.5 mg Documented By: BO Sodium Chloride (Nss) 1,000 mls @ 999 mls/hr IV .[id number] DOMINGA Stop: 09/06/24 04:45 Last Infusion: 09/06/24 04:48 Dose: Infused Documented By: Admin: 09/06/24 03:27 Dose: 999 mls/hr Documented By: Infusion: 09/06/24 03:27 Dose: Infused Documented By: Admin: 09/06/24 03:20 Dose: 999 mls/hr Documented By: BO Piperacillin Sod/Tazobactam Sod (Zosyn) 4.5 gm in 100 mls @ 200 mls/hr IV NOW ONE Stop: 09/06/24 03:51 Last Infusion: 09/06/24 04:16 Dose: Infused Documented By: Admin: 09/06/24 03:40 Dose: 200 mls/hr Documented By: BO Doxycycline Hyclate 100 mg/ (Dextrose) 100 mls @ 50 mls/hr IV NOW STA Stop: 09/06/24 06:18 Last Infusion: 09/06/24 07:30 Dose: Infused Documented By: Admin: 09/06/24 04:54 Dose: 50 mls/hr Documented By: BO Acetaminophen (Ofirmev) 1,000 mg in 100 mls @ 400 mls/hr IV NOW STA Stop: 09/06/24 04:25 Last Infusion: 09/06/24 04:48 Dose: Infused Documented By: Admin: 09/06/24 04:14 Dose: 400 mls/hr Documented By: BO Ioversol (Optiray 320 125ml) 86 ml IV ONCE ONE Stop: 09/06/24 05:46 Last Admin: 09/06/24 05:46 Dose: 86 ml Documented By: OPAL Metoprolol Tartrate (Metoprolol Tartrate 1 Mg/Ml Vial) 2.5 mg IV NOW STA Stop: 09/06/24 05:11 Last Admin: 09/06/24 06:09 Dose: 2.5 mg Documented By: [id number] Oseltamivir Phosphate (Oseltamivir Phosphate 75 Mg Cap) 75 mg PO ONE STA; Protocol Stop: 09/06/24 04:19 Last Admin: 09/06/24 05:28 Dose: 75 mg Documented By: JAMEE Potassium Chloride (Potassium Chloride Pwd 20 Meq Pack) 40 meq PO NOW STA Stop: 09/06/24 04:19 Last Admin: 09/06/24 04:53 Dose: 40 meq Documented By: BO Potassium Chloride (Potassium Chloride Pwd 20 Meq Pack) 40 meq PO ONE ONE Stop: 09/06/24 06:01 Last Admin: 09/06/24 05:09 Dose: 40 meq Documented By: BO Imaging Data Radiologist's Impression: Chest X-Ray 09/06/24 02:36 EXAM: XR chest 1V portable CLINICAL HISTORY: Sepsis. TECHNIQUE: An X-ray image of the chest is obtained in AP projection. COMPARISON: No prior studies are available for comparison. FINDINGS: Pulmonary Parenchyma: Patchy opacities were noted in the left middle and lower zone suggesting pneuomonia. No evidence of pleural effusion or pleural thickening. Heart and Mediastinum: Heart size and shape are normal. No mediastinal widening or masses. No hilar or mediastinal lymphadenopathy. Bony Thorax: Bony thorax appears intact without fractures or deformities. Soft Tissues: Soft tissues overlying the chest wall are unremarkable. IMPRESSION: 1. Patchy opacities were noted in the left middle and lower zone suggesting pneuomonia. 2. Clinical lab correlation and follow-up chest x-ray advised. Electronically signed by Leroy Chopra 09-06-2024 03:23 AM Discharge Plan Visit Data Chief Complaint: Chest Pain Stated Complaint: FLU FOR 9 DAYS, CHEST PAIN, SOB, BACK PAIN ED Provider: Dario Torrez Discharge Problem: Multifocal pneumonia, Left lower lobe pneumonia, Severe sepsis, Acute hypotension, Influenza A Patient Disposition: Admitted As Inpatient Discharge Instructions Interventions: ED Discharge Assessment Last Done: 09/06/24 05:24 Discharge Problem: Left lower lobe pneumonia Qualifiers: Pneumonia type: due to unspecified organism Qualified Code(s): J18.9 - Pneumonia, unspecified organism
[2024-09-06 03:18] LABS: Hematocrit (blood only) 36.2 % (37.0-47.0); Hemoglobin 12.5 g/dl (12.0-16.0); Mean Corpuscular Hemoglobin 28.3 pg (25.0-34.0); Mean Corpuscular Hgb Conc 34.5 g/dL (32.0-36.0); Mean Corpuscular Volume 82.1 fL (80.0-100.0); Platelet Count 224 K/uL (130-400); RDW Coefficient of Variation 12.2 % (11.5-14.5); Red Blood Count 4.41 M/uL (4.20-5.40); White Blood Count 14.32 K/ul (4.8-10.8)
[2024-09-06] MEDS: dexAMETHasone**PF** 10 MG/ML VIAL IV ONE (03:20)
[2024-09-06] MEDS: SODIUM CHLORIDE 0.9% 1,000 ML IV SCH (03:20)
[2024-09-06] MEDS: ALBUT/IPRATROP 3MG/0.5MG NEB 3 ML VIAL NEB ONE (03:22)
--- NOTE | 2024-09-06 03:23 | XRay Report ---
EXAM: XR chest 1V portable CLINICAL HISTORY: Sepsis. TECHNIQUE: An X-ray image of the chest is obtained in AP projection. COMPARISON: No prior studies are available for comparison. FINDINGS: Pulmonary Parenchyma: Patchy opacities were noted in the left middle and lower zone suggesting pneuomonia. No evidence of pleural effusion or pleural thickening. Heart and Mediastinum: Heart size and shape are normal. No mediastinal widening or masses. No hilar or mediastinal lymphadenopathy. Bony Thorax: Bony thorax appears intact without fractures or deformities. Soft Tissues: Soft tissues overlying the chest wall are unremarkable. IMPRESSION: 1. Patchy opacities were noted in the left middle and lower zone suggesting pneuomonia. 2. Clinical lab correlation and follow-up chest x-ray advised. Electronically signed by Leroy Chopra 09-06-2024 03:23 AM
[2024-09-06 03:25] LABS: Albumin Level 3.7 gm/dl (3.4-5.0); BUN Creatinine Ratio 13.3 (10-20); Bilirubin Direct 0.3 mg/dl (0-0.2); Bilirubin,Total 0.9 mg/dl (0.2-1.0); Calcium 9.1 mg/dl (8.6-10.3); Creatinine Clr Calc Pharmacy 71.1 ml/min; Magnesium 1.6 mg/dl (1.7-2.4); Potassium 3.1 mmol/L (3.5-5.1); Total Protein 7.5 gm/dl (6.0-8.3)
[2024-09-06 03:31] LABS: Troponin I High Sensitivity 5.5 pg/ml (0-14)
[2024-09-06 03:38] LABS: Basophils # (auto) 0.03 K/uL (0.00-0.20); Basophils % (auto) 0.2 %; Immature Granulocytes # (auto) 0.07 K/uL (0.01-0.20); Immature Granulocytes % (auto) 0.5 %; Lymphocytes % (auto) 3.5 %; Monocytes # (auto) 0.76 K/uL (0.11-0.59); Monocytes % (auto) 5.3 %; Neutrophils # (auto) 12.96 K/uL (1.40-6.50); Neutrophils % (auto) 90.5 %
[2024-09-06] MEDS: PIPERACILLIN/TAZOBACTAM 4.5 GM/100 ML BAG IV ONE (03:40)
[2024-09-06] MEDS: HYDROmorphone INJ 0.5 MG/0.5 ML SYR IV STA (03:41)
--- NOTE | 2024-09-06 03:50 | History & Physical Report ---
Date of Service September 06, 2024 Assessment & Plan (1) Sepsis: Plan: Secondary to influenza pneumonia with secondary bacterial infection Chest pain secondary to pneumonia rule out PE given risk factors Hyponatremia, hypokalemia, hypomagnesemia secondary to illness hypothyroidism, euthyroid as of last year's outpatient TSH gestational DM as per records Admit to PCU given tachycardia CS, Ceftriaxone and Doxycycline Tamiflu course CT chest PE study Replace electrolytes Recheck TSH Check hemoglobin A1c DVT prophylaxis per Lovenox subcu Full code Text document was generated using [employer] voice recognition software. It may contain grammatical or spelling errors. Kindly contact undersigned for clarification of any documentation item in question. History of Present Illness Chief Complaint: Flu, worsening shortness of breath, chest and back pain Primary Care Provider: Lu Martinez PA-C History obtained from patient, family, and records. Medical history significant for hypothyroidism, gestational DM. 1 week history of dry cough symptoms associated with fever, chills and li ghtheadedness. 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 Patient seen at local urgent care center a few days ago. Tested positive for flu. Sent home with instructions to rest and increase IV fluid. Worsening cough symptoms productive of greenish sputum. Achy pleuritic chest and back pain with worsening SOB. No leg swelling or fluid retention. Poor appetite with nausea emesis episode. Denies aspiration. Decadron, neb treatment, and Zosyn administered at the ER. 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 Allergies Allergy/AdvReac Type Severity Reaction Status Date / Time No Known Allergies Allergy NONE Verified 12/16/14 19:59 Home Medications Medication Instructions Recorded Confirmed Type Multivit/Min/Iron/Fol Ac/Pren 1 tab PO DAILY ##0 07/30/09 09/06/24 History ( Vitamin) levothyroxine 175 mcg tablet 175 mcg PO DAILY ##0 12/15/14 09/06/24 History norgestimate-ethinyl estradiol 1 tab PO DAILY 09/06/24 09/06/24 History 0.18 mg/0.215mg/0.25mg-35 mcg(28)tablet (Tri-Sprintec (28)) Past Med/Surg History Problem List (Updated 09/06/24 @ 04:44 by Db Hough MD) Sepsis Acute hypotension (Acute) Severe sepsis (Acute) Left lower lobe pneumonia (Acute) Post-dates (Acute) Vaginal bleeding before 22 weeks gestation (Acute) Social History Smoking Status: Never smoker Preferred Language: Kinyarwanda Feels Safe at Home: Yes Review of Systems Review of Systems: As per HPI, all other systems reviewed and negative Physical Exam Physical Exam: GENERAL: uncomfortable, dysphonic, respiratory distress SKIN: Normal color, warm HEENT: [place] palpebral conjunctivae, no ptosis, dry buccal mucosa NECK : Supple, no tenderness CHEST : Decreased breath sounds, no tenderness HEART : Tachycardic, no obvious murmurs ABDOMEN: Some distention, nontender EXTREMITIES : Minimal LE swelling without LE tenderness, palpable pulses, no other conspicuous deformities noted NEUROLOGIC : Coherent, no facial asymmetry, no other gross focality Results & Data Results & Data Vital Signs (Past 12 Hours) Vital Signs Temp Pulse Resp BP Pulse Ox O2 Del Method 09/06/24 03:23 113/93 09/06/24 03:23 113/93 09/06/24 03:21 134 H 30 H 98 09/06/24 03:00 136 H 25 H 97 Room Air 09/06/24 02:45 Room Air 09/06/24 02:42 115 H 22 97 Room Air 09/06/24 02:37 116 H 09/06/24 02:24 36.4 C L 117 H 20 94/68 L 97 Room Air Laboratory Results Laboratory Results WBC 14.32 K/ul (4.8-10.8) H 09/06/24 02:43 RBC 4.41 M/uL (4.20-5.40) 09/06/24 02:43 Hgb 12.5 g/dl (12.0-16.0) 09/06/24 02:43 Hct 36.2 % (37.0-47.0) L 09/06/24 02:43 MCV 82.1 fL (80.0-100.0) 09/06/24 02:43 MCH 28.3 pg (25.0-34.0) 09/06/24 02:43 MCHC 34.5 g/dL (32.0-36.0) 09/06/24 02:43 RDW Std Deviation 37.0 fL (36.4-46.3) 09/06/24 02:43 RDW Coeff of Itzel 12.2 % (11.5-14.5) 09/06/24 02:43 Plt Count 224 K/uL (130-400) 09/06/24 02:43 MPV 10.0 fL (9.4-12.4) 09/06/24 02:43 Immature Gran % (Auto) 0.5 % 09/06/24 02:43 Neut % (Auto) 90.5 % 09/06/24 02:43 Lymph % (Auto) 3.5 % 09/06/24 02:43 [place] % (Auto) 5.3 % 09/06/24 02:43 Eos % (Auto) 0.0 % 09/06/24 02:43 Baso % (Auto) 0.2 % 09/06/24 02:43 Neut # (Auto) 12.96 K/uL (1.40-6.50) H 09/06/24 02:43 Lymph # (Auto) 0.50 K/uL (1.20-3.40) L 09/06/24 02:43 [place] # (Auto) 0.76 K/uL (0.11-0.59) H 09/06/24 02:43 Eos # (Auto) 0.00 K/uL (0.00-0.50) 09/06/24 02:43 Baso # (Auto) 0.03 K/uL (0.00-0.20) 09/06/24 02:43 Immature Gran # (Auto) 0.07 K/uL (0.01-0.20) 09/06/24 02:43 Sodium 132 mmol/L (136-145) L 09/06/24 02:43 Potassium 3.1 mmol/L (3.5-5.1) L 09/06/24 02:43 Chloride 94 mmol/L (98-107) L 09/06/24 02:43 Carbon Dioxide 26 mmol/L (21-32) 09/06/24 02:43 Anion Gap 12 (3-11) H 09/06/24 02:43 BUN 13 mg/dl (6-23) 09/06/24 02:43 Creatinine 0.98 mg/dl (0.6-1.2) 09/06/24 02:43 Est Cr Clr Drug Dosing 71.1 ml/min 09/06/24 02:43 eGFR 71.20 09/06/24 02:43 BUN/Creatinine Ratio 13.3 (10-20) 09/06/24 02:43 Glucose 172 mg/dl (70-99(Fasting)) H 09/06/24 02:43 Lactate 1.7 mmol/L (0.4-2.0) 09/06/24 02:43 Calcium 9.1 mg/dl (8.6-10.3) 09/06/24 02:43 Magnesium 1.6 mg/dl (1.7-2.4) L 09/06/24 02:43 Total Bilirubin 0.9 mg/dl (0.2-1.0) 09/06/24 02:43 Direct Bilirubin 0.3 mg/dl (0-0.2) H 09/06/24 02:43 AST 28 U/L (13-39) 09/06/24 02:43 ALT 20 U/L (7-52) 09/06/24 02:43 Alkaline Phosphatase 63 U/L (34-104) 09/06/24 02:43 Troponin I High Sens 5.5 pg/ml (0-14) 09/06/24 02:43 Total Protein 7.5 gm/dl (6.0-8.3) 09/06/24 02:43 Albumin 3.7 gm/dl (3.4-5.0) 09/06/24 02:43 Procalcitonin 1.21 ng/ml (0-0.5) H 09/06/24 02:43 Impressions Chest X-Ray 09/06/24 02:36 EXAM: XR chest 1V portable CLINICAL HISTORY: Sepsis. TECHNIQUE: An X-ray image of the chest is obtained in AP projection. COMPARISON: No prior studies are available for comparison. FINDINGS: Pulmonary Parenchyma: Patchy opacities were noted in the left middle and lower zone suggesting pneuomonia. No evidence of pleural effusion or pleural thickening. Heart and Mediastinum: Heart size and shape are normal. No mediastinal widening or masses. No hilar or mediastinal lymphadenopathy. Bony Thorax: Bony thorax appears intact without fractures or deformities. Soft Tissues: Soft tissues overlying the chest wall are unremarkable. IMPRESSION: 1. Patchy opacities were noted in the left middle and lower zone suggesting pneuomonia. 2. Clinical lab correlation and follow-up chest x-ray advised. Electronically signed by Leroy Chopra 09-06-2024 03:23 AM Diagnostic Findings EKG as per my interpretation :Rate 150, sinus tachycardia, normal axis, ST depression anterolateral leads
[2024-09-06 04:04] LABS: Partial Thromboplastin Ratio 1.1; Partial Thromboplastin Time 30 Seconds (21-31)
[2024-09-06] MEDS: fentaNYL citrate PF 100 MCG/2 ML VIAL IV STA (04:12)
[2024-09-06] MEDS: ACETAMINOPHEN 1,000 MG/100 ML VIAL IV STA (04:14)
[2024-09-06] MEDS ORDERED: hydrOXYzine HCl 10 MG TAB PO PRN (04:15)
[2024-09-06] MEDS ORDERED: PROMETHAZINE 6.25 MG/50.25 ML BAG IV PRN (04:15)
[2024-09-06] MEDS ORDERED: ACETAMINOPHEN 325 MG TAB PO PRN (04:17)
[2024-09-06] MEDS ORDERED: IPRATROPIUM BROMIDE NEB SOLN 0.02% 0.5MG/2.5ML VIAL INH PRN (04:19)
[2024-09-06] MEDS ORDERED: LEVALBUTEROL 1.25 MG/3 ML NEB NEB PRN (04:19)
[2024-09-06] MEDS: ACETAMINOPHEN 500 MG TAB ONE (04:21)
[2024-09-06] MEDS: ACETAMINOPHEN 1000 MG/100 ML IV IV ONE (04:22)
[2024-09-06] MEDS: OSELTAMIVIR PHOSPHATE 75 MG CAP PO STA (04:22)
[2024-09-06] MEDS: NSS + 20MEQ KCL 20 MEQ/1,000 ML BAG IV STA (04:53)
[2024-09-06] MEDS: POTASSIUM CHLORIDE PWD 20 MEQ PACK PO STA (04:53)
[2024-09-06] MEDS: MAGNESIUM SULFATE / D5W 1 GM/100 ML BAG IV SCH (04:54)
[2024-09-06] MEDS: DOXYCYCLINE HYCLATE 100 MG in DEXTROSE 5% MINI-B 100 ML IV STA (04:54)
[2024-09-06] MEDS: BENZONATATE 100 MG CAPSULE PO STA (04:55)
[2024-09-06] MEDS: guaiFENesin 600 MG TABCR PO STA (04:55)
[2024-09-06 04:57] LABS: Thyroid Stimulating Hormone 0.801 uIu/ml (0.300-4.500)
[2024-09-06] MEDS: KETOROLAC TROMETHAMINE 15 MG/ML VIAL IV PRN (05:09)
[2024-09-06] MEDS: POTASSIUM CHLORIDE PWD 20 MEQ PACK PO ONE (05:09)
[2024-09-06] MEDS: OPTIRAY 320 125ml IV ONE (05:46)
[2024-09-06] MEDS: METOPROLOL TARTRATE 1 MG/ML VIAL IV STA (06:09)
[2024-09-06] MEDS: LEVOTHYROXINE SODIUM 175 MCG TABLET PO SCH (06:18)
[2024-09-06 06:56] LABS: Base Excess VBG -6.2 mEq/L; HCO3 VBG 18 mmol/L; Oxygen Saturation VBG 90.5 %; PCO2 VBG 31 mmHg (38-50); PO2 VBG 59 mmHg; pH VBG 7.37 (7.36-7.41)
[2024-09-06 07:06] LABS: Pregnancy Test, Urine Negative (Negative)
[2024-09-06 07:32] LABS: Appearance Urine Clear (Clear); Bilirubin Urine Negative (Negative); Blood Urine Negative (Negative); Color Urine Yellow; Glucose Urine UA Negative (Negative); Ketones Urine Negative (Negative); Leukocyte Esterase Urine Negative (Negative); Nitrite Urine Negative (Negative); Protein Urine Negative (Negative); Specific Gravity Urine 1.019 (1.000-1.030); Urobilinogen Urine Negative (Negative); pH Urine 6.5 (4.5-7.5)
--- NOTE | 2024-09-06 08:30 | CT Scan Report ---
CT angio chest PE protocol CT DOSE: 898.15 mGy.cm HISTORY: 49 years-old Female with PE: sob/tachy. Fm hx PE. Acute shortness of breath with tachycar senthil TECHNIQUE: Multiple CTA images of the chest were obtained after the intravenous administration of 86 ml Optiray. Coronal and sagittal MIPS were obtained from the axial data set and were submitted for [employer]. All measurements were obtained according to NASCET criteria. A dose lowering technique was ut ilized adhering to the principles of ALARA. COMPARISON: Chest radiograph of same day FINDINGS: CTA: Heart is normal in size. No pericardial effusion or thoracic aortic aneurysm. No pulmonary emboli balwinder ntified. CT CHEST: No thyroid nodule. Subcentimeter mediastinal and hilar lymph nodes are likely physiologic. Trace left pleural effusion. No pneumothorax. Lobular septal thickening with patchy consolidative densities not ed within the left upper and lower lobes. 2.9 cm centrally cavitary consolidation of the left lower l obe on image 19 series 4. Mild patchy groundglass densities throughout the right lung. Central airway s are patent. No acute upper abdominal abnormality. Unremarkable soft tissues. No acute fracture. IMPRESSION: 1. No pulmonary emboli identified. 2. Left lung predominant multifocal pneumonia includes a 2.9 cm centrally cavitary consolidation with in the left lower lobe. Findings are suggestive of necrotizing pneumonia. Close follow-up recommended along with sputum analysis. Two-month follow-up chest CT after treatment course suggested. 3. Trace left pleural effusion. ACT 112: Negative or not required by law. The above report was generated using voice recognition software. It may contain grammatical, syntax o r spelling errors. Electronically signed by: Benton Abdi M.D. 09/06/2024 8:29 AM
[2024-09-06 08:55] LABS: Estimated Average Glucose 134 mg/dl; Hemoglobin A1C 6.3 % (4.5-5.6)
[2024-09-06] MEDS: cefTRIAXone SODIUM 2,000 MG/50 ML BAG IV SCH (09:05)
[2024-09-06] MEDS: ENOXAPARIN INJ 40 MG/0.4 ML SYR SQ SCH (09:09)
[2024-09-06] MEDS: PRENATAL VITAMIN 1 TAB PO SCH (09:11)
[2024-09-06] MEDS: IPRATROPIUM BROMIDE NEB SOLN 0.02% 0.5MG/2.5ML VIAL INH STA (09:24)
[2024-09-06] MEDS: LEVALBUTEROL 1.25 MG/3 ML NEB NEB STA (09:25)
[2024-09-06 09:44] LABS: BUN Creatinine Ratio 12.5 (10-20); Calcium 7.9 mg/dl (8.6-10.3); Creatinine Clr Calc Pharmacy 80.4 ml/min; Magnesium 1.9 mg/dl (1.7-2.4); Potassium 4.2 mmol/L (3.5-5.1)
--- NOTE | 2024-09-06 11:32 | Pulmonary Consultation ---
Date of Consultation September 06, 2024 Assessment & Plan (1) Multifocal pneumonia: (2) Influenza A: Plan 49-year-old female who is flu A positive presenting with evidence of necrotizing cavitary pneumonia. MRSA screen negative. Continue ceftriaxone and doxycycline. Will add DuoNebs twice daily along with hypertonic saline twice daily for mucociliary clearance. Will also add flutter valve 4 times daily for clearance. Can consider bronchoscopy in the next 1 to 2 days if no improvement in symptoms for enhanced mucociliary clearance and obtaining a culture. Hopefully, we will be able to obtain a sputum culture with induced sputum. Urine Legionella antigen added. Thank you for the consult. Will continue to follow with you. History of Present Illness Reason for Consultation: "Necrotizing pneumonia" Attending Physician: Rebel Garcia DO History of Present Illness 49-year-old female with no significant past medical history presenting to the hospital due to ongoing shortness of breath and lethargy. She notes that she went to ER at [facility] in [place] earlier in the week and was ultimately discharged. She was not given Tamiflu. Then she presented to the ER today with flu and was started on Tamiflu and antibiotics. She notes that she has a dry cough. She is very lethargic and very short of breath with talking or walking. She denies any prior history of lung disease. She is a lifelong non- smoker. 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 Chest CT revealed left lung predominant multifocal pneumonia including a 2.9 cm central cavitary consolidation of the left lower lobe suggesting necrotizing pneumonia. She is currently on Tamiflu 75 mg twice daily, Rocephin, doxycycline and Mucinex. Unfortunately, she was not vaccinated against the flu this year, but states that she normally gets vaccinated. Allergies Allergy/AdvReac Type Severity Reaction Status Date / Time No Known Allergies Allergy NONE Verified 12/16/14 19:59 Home Medications Medication Instructions Recorded Confirmed Type Multivit/Min/Iron/Fol Ac/Pren 1 tab PO DAILY ##0 07/30/09 09/06/24 History ( Vitamin) levothyroxine 175 mcg tablet 175 mcg PO DAILY ##0 12/15/14 09/06/24 History norgestimate-ethinyl estradiol 1 tab PO DAILY 09/06/24 09/06/24 History 0.18 mg/0.215mg/0.25mg-35 mcg(28)tablet (Tri-Sprintec (28)) Patient History Social History Smoking Status: Never smoker Hx Alcohol Use: Yes Alcohol type: wine Hx Substance Use: No Preferred Language: Yoruba Communication Ability: Effective Business Teacher Required: No Beliefs That Will Affect Care: None Current Living Situation: Spouse Other Information That Helps Us Care for You: No Feels Safe at Home: Yes Safety Concerns: Feels Safe At This Time Assistive Devices: Glasses Review of Systems Review of Systems: All systems reviewed & are unremarkable except as noted in HPI & below Physical Exam Physical Exam: Constitutional: Patient appears to be of their stated age. Patient is in no apparent distress. Patient is well-developed. Eyes: Pupils are equal round and reactive to light. Conjunctivae are normal. Anicteric sclera. Ears nose, mouth and throat: Mallampati class 1. Normal posterior oropharynx. Uvula is midline. Neck: Trachea is midline. Visual inspection is normal. Respiratory: Rhonchi noted in the left upper and left lower lobe. No significant tachypnea. Minimal wheeze Cardiovascular: Regular rate and rhythm. No murmurs. No edema. Gastrointestinal: Normal bowel sounds, soft, nontender and nondistended. No hepatosplenomegaly noted. Musculoskeletal: No cyanosis. Patient is able to move all extremities. Strength is 5 out of 5 in the upper and lower extremities. Skin: No rashes, warm dry and intact. Neurologic: No obvious focal neurological deficits seen. Psychiatric: Alert and oriented x3 with a euthymic affect. Results & Data Results & Data Vital Signs (Past 12 Hours) Vital Signs Temp Pulse Pulse Pulse Resp BP BP 09/06/24 11:02 36.8 C 111 H 18 127/83 09/06/24 09:25 111 H 17 09/06/24 08:49 129 H 09/06/24 07:29 09/06/24 07:28 37.3 C 110 H 18 09/06/24 06:24 113 H 107/66 09/06/24 06:05 37.2 C 130 H 26 H 09/06/24 06:00 122 H 09/06/24 06:00 09/06/24 05:50 37.2 C 128 H 24 09/06/24 05:24 137 H 18 112/70 09/06/24 05:21 38.4 C H 09/06/24 05:06 137 H 25 H 163/74 H 09/06/24 04:30 147 H 25 H 108/68 09/06/24 04:27 151 H 22 09/06/24 04:06 151 H 25 H 123/72 09/06/24 04:00 39.5 C H 09/06/24 03:54 151 H 09/06/24 03:51 147 H 24 09/06/24 03:24 128 H 22 09/06/24 03:23 113/93 09/06/24 03:23 113/93 09/06/24 03:21 134 H 30 H 09/06/24 03:00 136 H 25 H 09/06/24 02:45 09/06/24 02:42 115 H 22 09/06/24 02:37 116 H 09/06/24 02:24 36.4 C L 117 H 20 94/68 L BP Pulse Ox O2 Del Method O2 Flow Rate 09/06/24 11:02 93 Room Air 09/06/24 09:25 91 Room Air 09/06/24 08:49 09/06/24 07:29 1 09/06/24 07:28 112/71 96 Nasal Cannula 2 09/06/24 06:24 09/06/24 06:05 120/78 95 Nasal Cannula 2 09/06/24 06:00 09/06/24 06:00 Nasal Cannula 2 09/06/24 05:50 120/78 94 Nasal Cannula 2 09/06/24 05:24 94 Nasal Cannula 2 09/06/24 05:21 09/06/24 05:06 94 Nasal Cannula 2 09/06/24 04:30 93 Nasal Cannula 2 09/06/24 04:27 88 L Room Air 09/06/24 04:06 93 Room Air 09/06/24 04:00 09/06/24 03:54 09/06/24 03:51 100 Room Air 09/06/24 03:24 99 Room Air 09/06/24 03:23 09/06/24 03:23 09/06/24 03:21 98 09/06/24 03:00 97 Room Air 09/06/24 02:45 Room Air 09/06/24 02:42 97 Room Air 09/06/24 02:37 09/06/24 02:24 97 Room Air PG Care Time/CCT Total # of Minutes Spent Total Time Spent with Patient: Total time spent is greater than 50% in coordination of care (as documented) at patient's floor/unit and/or counseling patient: Coding Level of Care Code 77643 IN/OBS CONSULT LVL 3,45M Diagnoses Multifocal pneumonia J18.9 Influenza A J10.1
[2024-09-06] MEDS: ALBUT/IPRATROP 3MG/0.5MG NEB 3 ML VIAL NEB SCH (11:46)
--- NOTE | 2024-09-06 13:20 | Hospitalist Progress Note ---
Date of Service September 06, 2024 Assessment & Plan (1) Severe sepsis: (2) Influenza due to identified novel influenza A virus with pneumonia: (3) Cavitary pneumonia: (4) Prediabetes: (5) Pleurisy with influenza: Plan Patient with severe sepsis associated with influenza pneumonia and suspected bacterial cavitary pneumonia and subsequent pleuritic chest pain. Patient remains significantly ill with leukocytosis. Cavitary lesion on CT, needs specialty evaluation and ongoing IV medications and monitoring. Consult pulmonary, reviewed their recommendations, continue Tamiflu and antibiotics, add saline nebs Antitussives and mucolytics Ibuprofen for pleuritic pain Follow-up with outpatient providers for monitoring of early diabetes Okay to MedSurg. Sinus tachycardia expected with pneumonia and sepsis Admission and Anticipated Discharge Date Admission Date: September 06, 2024 Subjective Patient states she is feeling little bit better. Does have some pain with deep inspiration on left side of her chest. Physical Exam Physical Exam: Constitutional: Alert, moderately ill in appearance HEENT: Mucous membranes moist. Lungs: Decreased breath sounds left greater than right, rhonchi left side CV: S1-S2, regular, tachycardic Abdomen: Soft, nontender, nondistended Extremities: No significant edema Neuro: No focal deficits, generally weak Psych: Cooperative, normal mood Results & Data Results & Data Vital Signs (Past 12 Hours) Vital Signs Temp Pulse Pulse Pulse Resp BP BP 09/06/24 11:46 110 H 16 09/06/24 11:02 36.8 C 111 H 18 127/83 09/06/24 09:25 111 H 17 09/06/24 08:49 129 H 09/06/24 07:29 09/06/24 07:28 37.3 C 110 H 18 09/06/24 06:24 113 H 107/66 09/06/24 06:05 37.2 C 130 H 26 H 09/06/24 06:00 122 H 09/06/24 06:00 09/06/24 05:50 37.2 C 128 H 24 09/06/24 05:24 137 H 18 112/70 09/06/24 05:21 38.4 C H 09/06/24 05:06 137 H 25 H 163/74 H 09/06/24 04:30 147 H 25 H 108/68 09/06/24 04:27 151 H 22 09/06/24 04:06 151 H 25 H 123/72 09/06/24 04:00 39.5 C H 09/06/24 03:54 151 H 09/06/24 03:51 147 H 24 09/06/24 03:24 128 H 22 09/06/24 03:23 113/93 09/06/24 03:23 113/93 09/06/24 03:21 134 H 30 H 09/06/24 03:00 136 H 25 H 09/06/24 02:45 09/06/24 02:42 115 H 22 09/06/24 02:37 116 H 09/06/24 02:24 36.4 C L 117 H 20 94/68 L BP Pulse Ox O2 Del Method O2 Flow Rate 09/06/24 11:46 92 Room Air 09/06/24 11:02 93 Room Air 09/06/24 09:25 91 Room Air 09/06/24 08:49 09/06/24 07:29 1 09/06/24 07:28 112/71 96 Nasal Cannula 2 09/06/24 06:24 09/06/24 06:05 120/78 95 Nasal Cannula 2 09/06/24 06:00 09/06/24 06:00 Nasal Cannula 2 09/06/24 05:50 120/78 94 Nasal Cannula 2 09/06/24 05:24 94 Nasal Cannula 2 09/06/24 05:21 09/06/24 05:06 94 Nasal Cannula 2 09/06/24 04:30 93 Nasal Cannula 2 09/06/24 04:27 88 L Room Air 09/06/24 04:06 93 Room Air 09/06/24 04:00 09/06/24 03:54 09/06/24 03:51 100 Room Air 09/06/24 03:24 99 Room Air 09/06/24 03:23 09/06/24 03:23 09/06/24 03:21 98 09/06/24 03:00 97 Room Air 09/06/24 02:45 Room Air 09/06/24 02:42 97 Room Air 09/06/24 02:37 09/06/24 02:24 97 Room Air Diagnostic Findings Reviewed imaging, laboratory and diagnostic studies. Pertinent findings as below. CT chest, personally reviewed images, dense consolidation left lobes. CT report indicates no PE, cavitary lesion possible necrotizing pneumonia. WBCs 14.3 Hemoglobin A1c 6.3% Procalcitonin 1.2 TSH 0.8 MRSA screen negative
[2024-09-06] MEDS: IBUPROFEN 600 MG TAB PO PRN (17:12)
[2024-09-06] MEDS: ACETAMINOPHEN 325 MG TAB PO PRN (17:12)
[2024-09-06 17:38] LABS: A calco-baum cmplx NotReported Not Detected (NotDetected); Bact fragilis Not Reported Not Detected (NotDetected); Blood Culture Id Panel See PCR Comment (NotDetected); C auris Not Reported Not Detected (NotDetected); Calbicans Not Reported Not Detected (NotDetected); Candida glabrata Not Reported Not Detected (NotDetected); Candida krusei Not Reported Not Detected (NotDetected); Cneoformans/gatti Not Reported Not Detected (NotDetected); Cparapsilosis Not Reported Not Detected (NotDetected); E cloacae compx Not Reported Not Detected (NotDetected); Efaecalis Not Reported Not Detected (NotDetected); Efaecium Not Reported Not Detected (NotDetected); Enterobacterales Not Reported Not Detected (NotDetected); Escherichia coli Not Reported Not Detected (NotDetected); H influenzae Not Reported Not Detected (NotDetected); K aerogenes Not Reported Not Detected (NotDetected); Koxytoca Not Reported Not Detected (NotDetected); Kpneumoniae grp Not Reported Not Detected (NotDetected); Lmonocyt Not Reported Not Detected (NotDetected); N meningitidis Not Reported Not Detected (NotDetected); P aeruginosa Not Reported Not Detected (NotDetected); Proteus spp Not Reported Not Detected (NotDetected); Salmonella spp Not Reported Not Detected (NotDetected); Staph lugdunensis Not Reported Not Detected (NotDetected); Staph spp. Not Reported Not Detected (NotDetected); Staphaureus Not Reported Not Detected (NotDetected); Staphepi Not Reported Not Detected (NotDetected); Stenmaltophilia Not Reported Not Detected (NotDetected); Strep agal(GrpB) Not Reported Not Detected (NotDetected); Strep pneum Not Reported Not Detected (NotDetected); Strep pyog (GrpA) Not Reported DETECTED (NotDetected); Strep spp Not Reported DETECTED (NotDetected); Streptococcus spp DETECTED (NotDetected)
[2024-09-06 17:41] LABS: Streptococcus pyogenes (GrpA) DETECTED (NotDetected)
[2024-09-06] MEDS: SODIUM CHLOR 7% 4 ML NEB NEB SCH (19:17)
[2024-09-06] MEDS: guaiFENesin 600 MG TABCR PO SCH (21:13)
[2024-09-06] MEDS: OSELTAMIVIR PHOSPHATE 75 MG CAP PO SCH (21:13)
[2024-09-06] MEDS: BENZONATATE 100 MG CAPSULE PO PRN (21:13)
[2024-09-06] MEDS: DOXYCYCLINE HYCLATE 100 MG CAP PO SCH (21:14)
--- NOTE | 2024-09-06 23:05 | Electrocardiogram Report ---
Test Reason : Blood Pressure : */* mmHG Vent. Rate : 151 BPM Atrial Rate : 151 BPM P-R Int : 144 ms QRS Dur : 70 ms QT Int : 264 ms P-R-T Axes : * 3 38 degrees QTcB Int : 419 ms Sinus tachycardia Nonspecific ST abnormality Abnormal ECG No previous ECGs available Confirmed by Mark Reardon [id number]) on 09/06/2024 11:05:11 PM Referred By: REFERRED SELF Confirmed By: Mark Reardon
[2024-09-07 07:07] LABS: Basophils # (auto) 0.05 K/uL (0.00-0.20); Basophils % (auto) 0.3 %; Eosinophils # (auto) 0.03 K/uL (0.00-0.50); Eosinophils % (auto) 0.2 %; Hematocrit (blood only) 30.4 % (37.0-47.0); Hemoglobin 10.3 g/dl (12.0-16.0); Immature Granulocytes # (auto) 0.11 K/uL (0.01-0.20); Immature Granulocytes % (auto) 0.7 %; Lymphocytes # (auto) 1.13 K/uL (1.20-3.40); Lymphocytes % (auto) 7.5 %; Mean Corpuscular Hemoglobin 28.4 pg (25.0-34.0); Mean Corpuscular Hgb Conc 33.9 g/dL (32.0-36.0); Mean Corpuscular Volume 83.7 fL (80.0-100.0); Mean Platelet Volume 10.2 fL (9.4-12.4); Monocytes % (auto) 5.9 %; Neutrophils # (auto) 12.92 K/uL (1.40-6.50); Neutrophils % (auto) 85.4 %; Platelet Count 261 K/uL (130-400); RDW Coefficient of Variation 12.7 % (11.5-14.5); RDW Standard Deviation 38.5 fL (36.4-46.3); Red Blood Count 3.63 M/uL (4.20-5.40); White Blood Count 15.14 K/ul (4.8-10.8)
[2024-09-07 07:23] LABS: BUN Creatinine Ratio 17.7 (10-20); Calcium 8.9 mg/dl (8.6-10.3); Creatinine Clr Calc Pharmacy 112.6 ml/min; Magnesium 2.2 mg/dl (1.7-2.4); Potassium 3.9 mmol/L (3.5-5.1)
--- NOTE | 2024-09-07 11:45 | Hospitalist Progress Note ---
Date of Service September 07, 2024 Assessment & Plan (1) Severe sepsis: (2) Influenza due to identified novel influenza A virus with pneumonia: (3) Streptococcal bacteremia: (4) Cavitary pneumonia: (5) Prediabetes: (6) Pleurisy with influenza: Plan Patient with severe sepsis due to streptococcal pneumonia and subsequent streptococcal bacteremia. Seems to be slowly improving. On room air. Continue current antibiotics Follow sensitivities Continue antitussives and mucolytics Nonsteroidals anti-inflammatory for pleuritic pain Discussed with patient her hemoglobin A1c. Recommending dietary changes at this time and close follow-up with her PCP. She reports she did have gestational diabetes which is a risk factor. Admission and Anticipated Discharge Date Admission Date: September 06, 2024 Subjective Patient states she still feels fairly achy. Still with some pleuritic chest pain when she takes a deep inspiration. Physical Exam Physical Exam: Constitutional: Alert, less ill in appearance compared to yesterday HEENT: Mucous membranes moist. Lungs: Decreased breath sounds left greater than right with some rhonchi CV: S1-S2, regular mild tachycardia Abdomen: Soft, nontender, nondistended Extremities: No significant edema Neuro: No focal deficits Psych: Cooperative, normal mood Results & Data Results & Data Vital Signs (Past 12 Hours) Vital Signs Temp Pulse Resp BP BP Pulse Ox O2 Del Method 09/07/24 08:00 36.6 C 106 H 18 134/85 93 Room Air 09/07/24 07:27 102 H 16 95 Room Air 09/07/24 03:16 36.4 C L 86 18 119/75 94 Room Air Diagnostic Findings Reviewed imaging, laboratory and diagnostic studies. Pertinent findings as below. 1 of 4 bottles growing strep pyogenes WBCs 15.1 Hemoglobin 10.3 BMP stable
--- NOTE | 2024-09-07 11:51 | Pulmonology Progress Note ---
Date of Service September 07, 2024 Assessment & Plan (1) Streptococcal bacteremia: (2) Pleurisy with influenza: (3) Cavitary pneumonia: Plan Impression: 49-year-old female with influenza A and group A strep positive blood cultures. Suspect this is the pathogen for the long as well. Recommendations: 1. Strep pyogenes bacteremia. Currently on Rocephin. Recommend infectious disease consultation. 2. Multifocal pneumonia: Suspect this is related to group A strep as well. Rocephin should be adequate. Can de-escalate antimicrobials to orals as directed by ID. Discontinue doxycycline 3. Recommend follow-up chest imaging in 2 to 4 weeks. 4. Influenza A: Complete course of Tamiflu. Ultimate disposition is deferred to the patient's primary care service however the patient is on room air currently and ambulating. If oral antibiotics can be determined, she may be eligible to dismiss from the hospital and complete a course of oral antibiotics at home with follow-up imaging with her primary care provider. If additional pulmonary follow-up is needed, the patient can follow- up with Dr. garcia in the outpatient setting. Thanks for the opportunity of participating the care of this patient. Feel free to contact us with questions or concerns. Pulmonary will sign off at this point in time. Admission and Anticipated Discharge Date Admission Date: September 06, 2024 Subjective Patient seen and examined. EMR reviewed. Discussed with off going master control technician as well as with patient at bedside. Patient states she feels about the same. She continues to feel congestion in her chest but is not really coughing anything up. She has been unable to produce a sputum sample. No chest pain or palpitations. She is able to ambulate to the restroom without any difficulty. No syncope or presyncope. Her fever curve is improving. Review of Systems 2 Review of Systems: All systems reviewed & are unremarkable except as noted in Subjective Physical Exam 2 Constitutional: WD/WN, vitals as above Neck: trachea midline, no thyromegaly Respiratory: normal respiratory effort, lungs clear to auscultation Cardiovascular: RRR, no murmur, no edema Gastrointestinal (Abdomen): normal bowel sounds, soft, nontender, no hepatosplenomegaly Musculoskeletal: Extremities: extremities normal to inspection Skin: no rashes, warm and dry Neurologic: Nonfocal exam Lymphatic: no cervical lymphadenopathy Results & Data Results & Data Vital Signs (Past 12 Hours) Vital Signs Temp Pulse Resp BP BP Pulse Ox O2 Del Method 09/07/24 08:00 36.6 C 106 H 18 134/85 93 Room Air 09/07/24 07:27 102 H 16 95 Room Air 09/07/24 03:16 36.4 C L 86 18 119/75 94 Room Air Laboratory Results 09/07/24 05:36 09/07/24 05:36 BioFire positive for group A strep Diagnostic Findings No new imaging PG Care Time/CCT Total # of Minutes Spent Total Time Spent with Patient: Total time spent is greater than 50% in coordination of care (as documented) at patient's floor/unit and/or counseling patient: Coding Level of Care Code 18372 SUB INP/OBS CARE 3/50MIN Diagnoses Streptococcal bacteremia R78.81; B95.5 Pleurisy with influenza J11.1; R09.1 Cavitary pneumonia J18.9; J98.4
[2024-09-07] MEDS: oxyCODONE HCL IR 5 MG TAB (IMMEDIATE RELEASE) PO PRN (15:36)
[2024-09-08 07:29] LABS: BUN Creatinine Ratio 19.4 (10-20); Calcium 8.4 mg/dl (8.6-10.3); Creatinine Clr Calc Pharmacy 112.6 ml/min; Potassium 3.6 mmol/L (3.5-5.1)
--- NOTE | 2024-09-08 10:04 | Infectious Disease Consult ---
Date of Service September 08, 2024 Telehealth Information I performed this visit using a real-time telehealth connection between my location and the patients location ([facility]). After connecting through interactive tele-video, patient was identified by name and date of and/or wristband check.Patient (or authorized healthcare clearance representative) was informed that this was a telemedicine visit and it was being conducted confidentially over secure lines. My office door was closed and no one else was present in the room with me.Patient (or authorized healthcare clearance representative) provided consent to proceed with the visit, expressed an understanding of privacy and security of the telemedicine visit, and gave permission to have a hospital clearance representative in the room in order to assist with the visit and to conduct portions of the visit, as needed. I informed the patient (or authorized healthcare clearance representative) that I reviewed their record and presented the opportunity for them to ask any questions regarding the visit today. The patient agreed to participate. Assessment & Plan (1) Streptococcal bacteremia: (2) Cavitary pneumonia: (3) Influenza A: (4) Sepsis: Plan Patient initially presenting to Urgent Care with influenza A infection unfortunately, presenting to the ED several days later with superadded bacterial infection, likely beta Streptococcus group A as seen on blood culture. She remains hemodynamically stable on room air, improving on CTX with sensitivities showing AYDIN penicillin<0.03 -Discontinue Ceftriaxone -Start Unasyn 3g IV q6hrs, will opt to cover anaerobes in setting of cavitation on CT chest -Please obtain repeat bacterial blood culture in the setting of gram positive bacteremia -If blood repeat blood cultures remain negative for 48hrs and patient remains stable then ok to discharge on Augmentin po TID for a total of 4 weeks treatment from 09/06/24 through 10/04/24 -If blood cultures return positive or patient worsens then please reach out to our service for further recommendations -ID will sign off at this time Case discussed with ID Attending Dr. Bree Crenshaw MD PGY-5, Infectious Disease [facility] History of Present Illness History of Present Illness Patient with 1 week history of dry cough associated with fever/chills/lightheadedness possible sick contacts at daycare. Seen at Urgent Care prior to admission testing positive for flu discharged home with instructions to hydrate. Patient noting worsening cough systems with productive green sputum and concomitant pleuritic chest pain radiating to the back worsening shortness of breath. Came to the ED for further evaluation On presentation hemodynamically stable, HR 107, RR 18, on room air 96%. WBC 14.32. CTA chest showing no PE, left lung predominant multifocal pneumonia includes a 2.9 cm centrally cavitary consolidation within the left lower lobe. Findings are suggestive of necrotizing pneumonia. 09/06 blood culture growing 1/4 bottles beta strep group A. Patient placed on oseltamivir and ceftriaxone 2 g IV daily, doxycycline discontinued. Briefly on O2 therapy 2LNC, now improved and again on RA, afebrile, [id number]. Allergies Allergy/AdvReac Type Severity Reaction Status Date / Time No Known Allergies Allergy NONE Verified 12/16/14 19:59 Home Medications Medication Instructions Recorded Confirmed Type Multivit/Min/Iron/Fol Ac/Pren 1 tab PO DAILY ##0 07/30/09 09/06/24 History ( Vitamin) levothyroxine 175 mcg tablet 175 mcg PO DAILY ##0 12/15/14 09/06/24 History norgestimate-ethinyl estradiol 1 tab PO DAILY 09/06/24 09/06/24 History 0.18 mg/0.215mg/0.25mg-35 mcg(28)tablet (Tri-Sprintec (28)) Patient History Social History Smoking Status: Never smoker Hx Alcohol Use: Yes Alcohol type: wine Hx Substance Use: No Preferred Language: Macedonian Communication Ability: Effective [employer] Basketball [employer] Required: No Beliefs That Will Affect Care: None Current Living Situation: Spouse Other Information That Helps Us Care for You: No Feels Safe at Home: Yes Safety Concerns: Feels Safe At This Time Assistive Devices: None Review of Systems Constitutional: No weight loss/gain, fatigue, fever, loss of appetite Eyes: No pain, drainage, vision change HENT: No ear pain/drainage, sinus infections, hearing loss Cardiovascular: No chest pain, palpitations, lower extremity swelling Respiratory: No shortness of breath, wheezing, cough, sputum production Gastrointestinal: No abdominal pain, nausea/vomiting, indigestion/heartburn Skin: No rash, lesions Neurological: No dizziness, weakness, confusion, sensory changes Physical Exam Telemedicine visit Results & Data Vital Signs (Past 12 Hours) Vital Signs Temp Pulse Resp BP BP Pulse Ox Pulse Ox 09/08/24 08:00 36.6 C 109 H 20 150/90 H 93 09/08/24 07:45 09/08/24 07:41 37.5 C 117 H 16 124/82 91 09/08/24 07:15 105 H 20 92 09/07/24 22:01 36.8 C 109 H 18 110/80 94 09/07/24 21:59 09/07/24 21:59 94 O2 Del Method O2 Del Method 09/08/24 08:00 Room Air 09/08/24 07:45 Room Air 09/08/24 07:41 Room Air 09/08/24 07:15 Room Air 09/07/24 22:01 Room Air 09/07/24 21:59 Room Air 09/07/24 21:59 Room Air Laboratory Results Microbiology 09/06/24 02:43 Blood Aerobic Blood Culture - Preliminary Strep pyogenes (Group A) 09/06/24 02:43 Blood Anaerobic Blood Culture - Preliminary No growth in Anaerobic bottle after 48 hours. 09/06/24 03:00 Blood Aerobic Blood Culture - Preliminary No growth in Aerobic bottle after 48 hours. 09/06/24 03:00 Blood Anaerobic Blood Culture - Preliminary No growth in Anaerobic bottle after 48 hours. Laboratory Results - last 48 hr 09/06/24 09/06/24 09/07/24 02:43 Unknown 05:36 WBC 15.14 H RBC 3.63 L Hgb 10.3 L Hct 30.4 L MCV 83.7 MCH 28.4 MCHC 33.9 RDW Std Deviation 38.5 RDW Coeff of Itzel 12.7 Plt Count 261 MPV 10.2 Immature Gran % (Auto) 0.7 Neut % (Auto) 85.4 Lymph % (Auto) 7.5 [place] % (Auto) 5.9 Eos % (Auto) 0.2 Baso % (Auto) 0.3 Neut # (Auto) 12.92 H Lymph # (Auto) 1.13 L [place] # (Auto) 0.90 H Eos # (Auto) 0.03 Baso # (Auto) 0.05 Immature Gran # (Auto) 0.11 Sodium 137 Potassium 3.9 Chloride 108 H Carbon Dioxide 24 Anion Gap 5 BUN 11 Creatinine 0.62 Est Cr Clr Drug Dosing 112.6 eGFR 109.78 BUN/Creatinine Ratio 17.7 Glucose 117 H Calcium 8.9 Magnesium 2.2 Nasal Screen MRSA (PCR) Negative Streptococcus sp PCR DETECTED A S. pyogenes (PCR) DETECTED A Bld Cult ID Panel PCR See PCR Comment 09/08/24 06:36 WBC RBC Hgb Hct MCV MCH MCHC RDW Std Deviation RDW Coeff of Itzel Plt Count MPV Immature Gran % (Auto) Neut % (Auto) Lymph % (Auto) [place] % (Auto) Eos % (Auto) Baso % (Auto) Neut # (Auto) Lymph # (Auto) [place] # (Auto) Eos # (Auto) Baso # (Auto) Immature Gran # (Auto) Sodium 134 L Potassium 3.6 Chloride 102 Carbon Dioxide 26 Anion Gap 6 BUN 12 Creatinine 0.62 Est Cr Clr Drug Dosing 112.6 eGFR 109.78 BUN/Creatinine Ratio 19.4 Glucose 105 H Calcium 8.4 L Magnesium Nasal Screen MRSA (PCR) Streptococcus sp PCR S. pyogenes (PCR) Bld Cult ID Panel PCR Diagnostic Findings Laboratory Results WBC 15.14 K/ul (4.8-10.8) H 09/07/24 05:36 RBC 3.63 M/uL (4.20-5.40) L 09/07/24 05:36 Hgb 10.3 g/dl (12.0-16.0) L 09/07/24 05:36 Hct 30.4 % (37.0-47.0) L 09/07/24 05:36 MCV 83.7 fL (80.0-100.0) 09/07/24 05:36 MCH 28.4 pg (25.0-34.0) 09/07/24 05:36 MCHC 33.9 g/dL (32.0-36.0) 09/07/24 05:36 RDW Std Deviation 38.5 fL (36.4-46.3) 09/07/24 05:36 RDW Coeff of Itzel 12.7 % (11.5-14.5) 09/07/24 05:36 Plt Count 261 K/uL (130-400) 09/07/24 05:36 MPV 10.2 fL (9.4-12.4) 09/07/24 05:36 Immature Gran % (Auto) 0.7 % 09/07/24 05:36 Neut % (Auto) 85.4 % 09/07/24 05:36 Lymph % (Auto) 7.5 % 09/07/24 05:36 [place] % (Auto) 5.9 % 09/07/24 05:36 Eos % (Auto) 0.2 % 09/07/24 05:36 Baso % (Auto) 0.3 % 09/07/24 05:36 Neut # (Auto) 12.92 K/uL (1.40-6.50) H 09/07/24 05:36 Lymph # (Auto) 1.13 K/uL (1.20-3.40) L 09/07/24 05:36 [place] # (Auto) 0.90 K/uL (0.11-0.59) H 09/07/24 05:36 Eos # (Auto) 0.03 K/uL (0.00-0.50) 09/07/24 05:36 Baso # (Auto) 0.05 K/uL (0.00-0.20) 09/07/24 05:36 Immature Gran # (Auto) 0.11 K/uL (0.01-0.20) 09/07/24 05:36 APTT 30 Seconds (21-31) 09/06/24 02:43 PTT Ratio 1.1 09/06/24 02:43 VBG pH 7.37 (7.36-7.41) 09/06/24 06:42 VBG pCO2 31 mmHg (38-50) L 09/06/24 06:42 VBG pO2 59 mmHg 09/06/24 06:42 VBG HCO3 18 mmol/L 09/06/24 06:42 VBG O2 Saturation 90.5 % 09/06/24 06:42 VBG Base Excess -6.2 mEq/L 09/06/24 06:42 Sodium 134 mmol/L (136-145) L 09/08/24 06:36 Potassium 3.6 mmol/L (3.5-5.1) 09/08/24 06:36 Chloride 102 mmol/L (98-107) 09/08/24 06:36 Carbon Dioxide 26 mmol/L (21-32) 09/08/24 06:36 Anion Gap 6 (3-11) 09/08/24 06:36 BUN 12 mg/dl (6-23) 09/08/24 06:36 Creatinine 0.62 mg/dl (0.6-1.2) 09/08/24 06:36 Est Cr Clr Drug Dosing 112.6 ml/min 09/08/24 06:36 eGFR 109.78 09/08/24 06:36 BUN/Creatinine Ratio 19.4 (10-20) 09/08/24 06:36 Glucose 105 mg/dl (70-99(Fasting)) H 09/08/24 06:36 Estimat Average Glucose 134 mg/dl 09/06/24 02:43 Hemoglobin A1c 6.3 % (4.5-5.6) H 09/06/24 02:43 Lactate 1.7 mmol/L (0.4-2.0) 09/06/24 02:43 Calcium 8.4 mg/dl (8.6-10.3) L 09/08/24 06:36 Magnesium 2.2 mg/dl (1.7-2.4) 09/07/24 05:36 Total Bilirubin 0.9 mg/dl (0.2-1.0) 09/06/24 02:43 Direct Bilirubin 0.3 mg/dl (0-0.2) H 09/06/24 02:43 AST 28 U/L (13-39) 09/06/24 02:43 ALT 20 U/L (7-52) 09/06/24 02:43 Alkaline Phosphatase 63 U/L (34-104) 09/06/24 02:43 Troponin I High Sens 5.5 pg/ml (0-14) 09/06/24 02:43 Total Protein 7.5 gm/dl (6.0-8.3) 09/06/24 02:43 Albumin 3.7 gm/dl (3.4-5.0) 09/06/24 02:43 Procalcitonin 1.21 ng/ml (0-0.5) H 09/06/24 02:43 TSH 0.801 uIu/ml (0.300-4.500) 09/06/24 02:43 Urine Color Yellow 09/06/24 Unknown Urine Appearance Clear (Clear) 09/06/24 Unknown Urine pH 6.5 (4.5-7.5) 09/06/24 Unknown Ur Specific [place] 1.019 (1.000-1.030) 09/06/24 Unknown Urine Protein Negative (Negative) 09/06/24 Unknown Urine Glucose (UA) Negative (Negative) 09/06/24 Unknown Urine Ketones Negative (Negative) 09/06/24 Unknown Urine Blood Negative (Negative) 09/06/24 Unknown Urine Nitrite Negative (Negative) 09/06/24 Unknown Urine Bilirubin Negative (Negative) 09/06/24 Unknown Urine Urobilinogen Negative (Negative) 09/06/24 Unknown Ur Leukocyte Esterase Negative (Negative) 09/06/24 Unknown Urine Test Negative (Negative) 09/06/24 Unknown Nasal Screen MRSA (PCR) Negative (Negative) 09/06/24 Unknown Streptococcus sp PCR DETECTED (NotDetected) A 09/06/24 02:43 S. pyogenes (PCR) DETECTED (NotDetected) A 09/06/24 02:43 Bld Cult ID Panel PCR See PCR Comment (NotDetected) 09/06/24 02:43 Impressions Chest CTA 09/06/24 04:10 CTA: Heart is normal in size. No pericardial effusion or thoracic aortic aneurysm. No pulmonary emboli identified. CT CHEST: No thyroid nodule. Subcentimeter mediastinal and hilar lymph nodes are likely physiologic. Trace left pleural effusion. No pneumothorax. Lobular septal thickening with patchy consolidative densities noted within the left upper and lower lobes. 2.9 cm centrally cavitary consolidation of the left lower lobe on image 19 series 4. Mild patchy groundglass densities throughout the right lung. Central airways are patent. No acute upper abdominal abnormality. Unremarkable soft tissues. No acute fracture. IMPRESSION: 1. No pulmonary emboli identified. 2. Left lung predominant multifocal pneumonia includes a 2.9 cm centrally cavitary consolidation within the left lower lobe. Findings are suggestive of necrotizing pneumonia. Close follow-up recommended along with sputum analysis. Two-month follow-up chest CT after treatment course suggested. 3. Trace left pleural effusion.
--- NOTE | 2024-09-08 10:10 | XRay Report ---
XR chest 2V PA/lateral CLINICAL HISTORY: Pneumonia. COMPARISON STUDY: Chest radiograph and chest CT September 06, 2024. FINDINGS: There is no pneumothorax. A small left pleural effusion is present. A 4 cm cavitary left lo wer lobe opacity is present. 7.9 cm dense focus of consolidation within the left upper lobe has progr essed. Right lung is clear. Cardiomediastinal silhouette is normal. IMPRESSION: 1. Slight progression of dense left upper lobe consolidation consistent with pneumonia. 2. Slight increase in a 4 cm cavitary left lower lobe opacity. The findings favor a necrotizing pneum onia. Radiographic follow-up to ensure resolution is recommended. 3. Small left pleural effusion. ACT 112: Negative or not required by law. Electronically signed by: Jed Flores M.D. 09/08/2024 10:07 AM
--- NOTE | 2024-09-08 15:49 | Hospitalist Progress Note ---
Date of Service September 08, 2024 Assessment & Plan (1) Severe sepsis: (2) Influenza due to identified novel influenza A virus with pneumonia: (3) Streptococcal bacteremia: (4) Cavitary pneumonia: (5) Prediabetes: (6) Pleurisy with influenza: Plan Patient with cavitary streptococcal pneumonia and bacteremia in addition to influenza pneumonia. Slow to improve Infectious disease consultation. Recommendations reviewed, change antibiotics to Unasyn, repeat blood cultures. Can transition to Augmentin if repeat blood cultures negative. Monitor laboratory studies Encourage activity Admission and Anticipated Discharge Date Admission Date: September 06, 2024 Subjective Patient still feels significantly ill. Does not feel that she is improved much at all. Physical Exam Physical Exam: Constitutional: Alert, significantly less ill in appearance HEENT: Mucous membranes moist. Lungs: Decreased breath sounds, crackles and rhonchi left lower lobe CV: S1-S2, regular Abdomen: Soft, nontender, nondistended Extremities: No significant edema Neuro: No focal deficits Psych: Cooperative, normal mood Results & Data Results & Data Vital Signs (Past 12 Hours) Vital Signs Temp Pulse Resp BP BP Pulse Ox O2 Del Method 09/08/24 14:30 37.3 C 100 H 16 117/77 94 Room Air 09/08/24 08:00 36.6 C 109 H 20 150/90 H 93 Room Air 09/08/24 07:45 Room Air 09/08/24 07:41 37.5 C 117 H 16 124/82 91 Room Air 09/08/24 07:15 105 H 20 92 Room Air Diagnostic Findings Reviewed imaging, laboratory and diagnostic studies. Pertinent findings as below. Repeat chest x-ray today showed slight progression in infiltrates Electrolytes stable Creatinine 0.62
[2024-09-08] MEDS: AMPICILLIN/SULBACTAM SOD 3,000 MG/100 ML BAG IV SCH (16:58)
--- NOTE | 2024-09-08 18:41 | Electrocardiogram Report ---
Test Reason : Blood Pressure : */* mmHG Vent. Rate : 114 BPM Atrial Rate : 114 BPM P-R Int : 160 ms QRS Dur : 66 ms QT Int : 316 ms P-R-T Axes : 54 1 39 degrees QTcB Int : 435 ms Sinus tachycardia Otherwise normal ECG No previous ECGs available Confirmed by Mark Reardon ([id number]) on 09/08/2024 6:40:39 PM Referred By: REFERRED SELF Confirmed By: Mark Reardon
[2024-09-09 06:26] LABS: Hematocrit (blood only) 31.7 % (37.0-47.0); Hemoglobin 10.8 g/dl (12.0-16.0); Mean Corpuscular Hemoglobin 28.4 pg (25.0-34.0); Mean Corpuscular Hgb Conc 34.1 g/dL (32.0-36.0); Mean Corpuscular Volume 83.4 fL (80.0-100.0); Mean Platelet Volume 9.3 fL (9.4-12.4); Platelet Count 357 K/uL (130-400); RDW Coefficient of Variation 12.6 % (11.5-14.5); RDW Standard Deviation 38.3 fL (36.4-46.3)
[2024-09-09 06:37] LABS: Calcium 8.7 mg/dl (8.6-10.3); Potassium 3.5 mmol/L (3.5-5.1)
[2024-09-09 06:42] LABS: Creatinine Clr Calc Pharmacy 116.4 ml/min
--- NOTE | 2024-09-09 09:24 | Hospitalist Progress Note ---
Date of Service September 09, 2024 Assessment & Plan (1) Severe sepsis: (2) Influenza due to identified novel influenza A virus with pneumonia: (3) Streptococcal bacteremia: (4) Cavitary pneumonia: (5) Prediabetes: (6) Pleurisy with influenza: Plan (1) Sepsis: Strep bacteremia + Influenza Secondary to influenza pneumonia with secondary bacterial infection Chest pain secondary to pneumonia rule out PE given risk factors IMPRESSION: 1. No pulmonary emboli identified. 2. Left lung predominant multifocal pneumonia includes a 2.9 cm centrally cavitary consolidation within the left lower lobe. Findings are suggestive of necrotizing pneumonia. Close follow-up recommended along with sputum analysis. Two-month follow-up chest CT after treatment course suggested. 3. Trace left pleural effusion. Admitted to PCU initially, now on Med/Surg floor Blood cultx positive for Strep Repeat blood cultx - pending Initially on Ceftriaxone and Doxycycline, ID consulted switched to Unasyn Tamiflu course Pulmonary med. consulted - 1. Strep pyogenes bacteremia. Per infectious disease consultation. 2. Multifocal pneumonia: Suspect this is related to group A strep as well. Can de-escalate antimicrobials to orals as directed by ID. Discontinue doxycycline 3. Recommend follow-up chest imaging in 2 to 4 weeks. 4. Influenza A: Complete course of Tamiflu. ID consulted - Patient initially presenting to Urgent Care with influenza A infection unfortunately, presenting to the ED several days later with superadded bacterial infection, likely beta Streptococcus group A as seen on blood culture. She remains hemodynamically stable on room air, improving on CTX with sensitivities showing AYDIN penicillin<0.03 -Discontinue Ceftriaxone -Start Unasyn 3g IV q6hrs, will opt to cover anaerobes in setting of cavitation on CT chest -Please obtain repeat bacterial blood culture in the setting of gram positive bacteremia -If blood repeat blood cultures remain negative for 48hrs and patient remains stable then ok to discharge on Augmentin po TID for a total of 4 weeks treatment from 09/06/24 through 10/04/24 -If blood cultures return positive or patient worsens then please reach out to our service for further recommendations Hyponatremia, hypokalemia, hypomagnesemia secondary to illness Replete and monitor Hypothyroidism, euthyroid as of last year's outpatient TSH current TSH 0.8 Hx of gestational DM as per records. Current A1c 6.3% - follow up as outpt DVT prophylaxis per Lovenox subcu Full code Admission and Anticipated Discharge Date Admission Date: September 06, 2024 Subjective Pt seen in follow up, + Flu, cavitary pna, strep bacteremia Was seen by pulm. and by ID, switched to Unasyn Currently sitting up in bed in NAD, on RA but not feeling well, says she does not feel improved since coming to the hospital Repeat blood cultx pending Reports feeling chills, no abd. pain, n/v Review of Systems Review of Systems: All systems reviewed & are unremarkable except as noted in Subjective Physical Exam Physical Exam: Constitutional: WD/WN F in NAD HEENT: NC/AT. Mucous membranes moist. Lungs: Decreased breath sounds, crackles and rhonchi left lower lobe CV: regular Abdomen: Soft, nontender, nondistended Extremities: No significant edema, moves extremities Neuro: awake, alert, answers appropriately, speech fluent, moves extremities Results & Data Results & Data Vital Signs (Past 12 Hours) Vital Signs Temp Pulse Resp BP BP Pulse Ox Pulse Ox 09/09/24 07:26 92 H 18 92 09/09/24 07:20 36.7 C 90 16 115/77 91 09/09/24 02:24 94 09/08/24 22:30 37.2 C 90 96 09/08/24 21:44 09/08/24 21:40 38.1 C H 120 H 16 134/82 94 O2 Del Method O2 Del Method 09/09/24 07:26 Room Air 09/09/24 07:20 Room Air 09/09/24 02:24 Room Air 09/08/24 22:30 Room Air 09/08/24 21:44 Room Air 09/08/24 21:40 Room Air Laboratory Results 09/09/24 Range/Units 05:53 WBC 12.90 H (4.8-10.8) K/ul RBC 3.80 L (4.20-5.40) M/uL Hgb 10.8 L (12.0-16.0) g/dl Hct 31.7 L (37.0-47.0) % MCV 83.4 (80.0-100.0) fL MCH 28.4 (25.0-34.0) pg MCHC 34.1 (32.0-36.0) g/dL RDW Std Deviation 38.3 (36.4-46.3) fL RDW Coeff of Itzel 12.6 (11.5-14.5) % Plt Count 357 (130-400) K/uL MPV 9.3 L (9.4-12.4) fL Sodium 136 (136-145) mmol/L Potassium 3.5 (3.5-5.1) mmol/L Chloride 102 (98-107) mmol/L Carbon Dioxide 26 (21-32) mmol/L Anion Gap 8 (3-11) BUN 9 (6-23) mg/dl Creatinine 0.60 (0.6-1.2) mg/dl Est Cr Clr Drug Dosing 116.4 ml/min eGFR 110.65 BUN/Creatinine Ratio 15.0 (10-20) Glucose 107 H (70-99(Fasting)) mg/dl Calcium 8.7 (8.6-10.3) mg/dl Medications Administered Current Inpatient Medications Acetaminophen (Acetaminophen 325 Mg Tab) 650 mg PO Q4H PRN PRN Reason: pain/fever Stop: 10/06/24 04:16 Last Admin: 09/08/24 11:34 Dose: 650 mg Albuterol (Albut/Ipratrop 3mg/0.5mg Neb 3 Ml Vial) 3 ml NEB BIDR [facility]; Protocol Stop: 10/06/24 11:29 Last Admin: 09/09/24 07:25 Dose: 3 ml Benzonatate (Benzonatate 100 Mg Capsule) 100 mg PO TID PRN PRN Reason: Cough Stop: 10/06/24 04:17 Last Admin: 09/08/24 07:52 Dose: 100 mg Enoxaparin Sodium (Enoxaparin Inj 40 Mg/0.4 Ml Syr) 40 mg SQ QAM [facility] Stop: 10/06/24 08:59 Last Admin: 09/09/24 08:30 Dose: 40 mg Guaifenesin (Guaifenesin 600 Mg Tabcr) 600 mg PO Q12 [facility] Stop: 10/06/24 20:59 Last Admin: 09/09/24 08:30 Dose: 600 mg Hydroxyzine HCl (Hydroxyzine Hcl 10 Mg Tab) 10 mg PO QID PRN PRN Reason: Anxiety Stop: 10/06/24 04:14 Promethazine HCl (Phenergan) 6.25 mg in 50.25 mls @ 201 mls/hr IV Q6H PRN PRN Reason: Nausea And Vomiting Stop: 10/06/24 04:14 Ampicillin Sodium/Sulbactam Sodium (Unasyn) 3,000 mg in 100 mls @ 200 mls/hr IV Q6H [facility] Stop: 09/13/24 15:59 Last Infusion: 09/09/24 04:15 Dose: Infused Ibuprofen (Ibuprofen 600 Mg Tab) 600 mg PO Q6H PRN PRN Reason: Pain/pleurisy Stop: 10/06/24 13:21 Last Admin: 09/09/24 06:14 Dose: 600 mg Ipratropium [place] (Ipratropium [place] Neb Soln 0.02% 0.5mg/2.5ml Vial) 0.5 mg INH Q4H PRN PRN Reason: sob wheeze Stop: 10/06/24 04:18 Levalbuterol HCl (Levalbuterol 1.25 Mg/3 Ml Neb) 1.25 mg NEB Q4H PRN PRN Reason: sob wheeze Stop: 10/06/24 04:18 Levothyroxine Sodium (Levothyroxine Sodium 175 Mcg Tablet) 175 mcg PO DAILYBB [facility] Stop: 10/06/24 06:29 Last Admin: 09/09/24 06:15 Dose: 175 mcg Oseltamivir Phosphate (Oseltamivir Phosphate 75 Mg Cap) 75 mg PO BID [facility]; Protocol Stop: 09/11/24 20:59 Last Admin: 09/09/24 08:29 Dose: 75 mg Oxycodone HCl (Oxycodone Hcl Ir 5 Mg Tab (Immediate Release)) 5 mg PO Q4H PRN PRN Reason: Pain Stop: 09/20/24 04:14 Last Admin: 09/09/24 06:13 Dose: 5 mg Prenat Multivit/[place]/Iron/Folic Ac ( Vitamin 1 Tab) 1 tab PO DAILY [facility] Stop: 10/06/24 08:59 Last Admin: 09/09/24 08:29 Dose: 1 tab Sodium Chloride (Sodium Chlor 7% 4 Ml Neb) 4 ml NEB BIDR [facility] Stop: 10/06/24 18:59 Last Admin: 09/09/24 07:25 Dose: 4 ml
[2024-09-09] MEDS: POTASSIUM CHLORIDE CRTAB 20 MEQ TABCR PO STA (09:49)
[2024-09-10 06:35] LABS: Hematocrit (blood only) 30.9 % (37.0-47.0); Hemoglobin 10.3 g/dl (12.0-16.0); Mean Corpuscular Hemoglobin 27.8 pg (25.0-34.0); Mean Corpuscular Hgb Conc 33.3 g/dL (32.0-36.0); Mean Corpuscular Volume 83.5 fL (80.0-100.0); Mean Platelet Volume 9.2 fL (9.4-12.4); Platelet Count 458 K/uL (130-400); RDW Coefficient of Variation 12.6 % (11.5-14.5); RDW Standard Deviation 38.3 fL (36.4-46.3); White Blood Count 16.48 K/ul (4.8-10.8)
[2024-09-10 07:04] LABS: Albumin Globulin Ratio 0.8 (0.9-2); BUN Creatinine Ratio 10.2 (10-20); Bilirubin,Total 0.6 mg/dl (0.2-1.0); Calcium 8.6 mg/dl (8.6-10.3); Creatinine Clr Calc Pharmacy 118.4 ml/min; Globulin 3.7 gm/dl (2.5-4.0); Magnesium 1.8 mg/dl (1.7-2.4); Phosphorus 3.7 mg/dl (2.5-4.9); Potassium 3.5 mmol/L (3.5-5.1); Total Protein 6.7 gm/dl (6.0-8.3)
--- NOTE | 2024-09-10 08:00 | Hospitalist Progress Note ---
Date of Service September 10, 2024 Assessment & Plan (1) Severe sepsis: (2) Influenza due to identified novel influenza A virus with pneumonia: (3) Streptococcal bacteremia: (4) Cavitary pneumonia: (5) Prediabetes: (6) Pleurisy with influenza: Plan (1) Sepsis: Strep bacteremia + Influenza Secondary to influenza pneumonia with secondary bacterial infection Chest pain secondary to pneumonia rule out PE given risk factors IMPRESSION: 1. No pulmonary emboli identified. 2. Left lung predominant multifocal pneumonia includes a 2.9 cm centrally cavitary consolidation within the left lower lobe. Findings are suggestive of necrotizing pneumonia. Close follow-up recommended along with sputum analysis. Two-month follow-up chest CT after treatment course suggested. 3. Trace left pleural effusion. Admitted to PCU initially, now on Med/Surg floor Blood cultx positive for Strep Repeat blood cultx - pending Initially on Ceftriaxone and Doxycycline, ID consulted switched to Unasyn Tamiflu course Pulmonary med. consulted - 1. Strep pyogenes bacteremia. Per infectious disease consultation. 2. Multifocal pneumonia: Suspect this is related to group A strep as well. Can de-escalate antimicrobials to orals as directed by ID. Discontinue doxycycline 3. Recommend follow-up chest imaging in 2 to 4 weeks. 4. Influenza A: Complete course of Tamiflu. ID consulted - Patient initially presenting to Urgent Care with influenza A infection unfortunately, presenting to the ED several days later with superadded bacterial infection, likely beta Streptococcus group A as seen on blood culture. She remains hemodynamically stable on room air, improving on CTX with sensitivities showing AYDIN penicillin<0.03 -Discontinue Ceftriaxone -Start Unasyn 3g IV q6hrs, will opt to cover anaerobes in setting of cavitation on CT chest -Please obtain repeat bacterial blood culture in the setting of gram positive bacteremia -If blood repeat blood cultures remain negative for 48hrs and patient remains stable then ok to discharge on Augmentin po TID for a total of 4 weeks treatment from 09/06/24 through 10/04/24 -If blood cultures return positive or patient worsens then please reach out to our service for further recommendations 09/10/2024 WBC increased, pt reports not feeling much better will repeat CXR, repeat CBC tmrw AM, if continues to increase will further discuss w/ ID LFTs elevated, no abd. pain, trend LFTs, CMP ordered for tmrw AM Hyponatremia, hypokalemia, hypomagnesemia secondary to illness Replete and monitor Hypothyroidism, euthyroid as of last year's outpatient TSH current TSH 0.8 Hx of gestational DM as per records. Current A1c 6.3% - follow up as outpt DVT prophylaxis per Lovenox subcu Full code Admission and Anticipated Discharge Date Admission Date: September 06, 2024 Subjective Pt seen in follow up, + Flu, cavitary pna, strep bacteremia Was seen by pulm. and by ID, switched to Unasyn Currently sitting up in bed in NAD, on RA but not feeling well, says she does not feel much improved since coming to the hospital Repeat blood cultx pending LFTs elevated, no abd. pain, n/v WBC elevated. Pt reports drinking plenty of water Review of Systems Review of Systems: All systems reviewed & are unremarkable except as noted in Subjective Physical Exam Physical Exam: Constitutional: WD/WN F in NAD HEENT: NC/AT. Mucous membranes moist. Lungs: Decreased breath sounds, crackles and rhonchi left mid lobe CV: regular Abdomen: Soft, nontender, nondistended Extremities: No significant edema, moves extremities Neuro: awake, alert, answers appropriately, speech fluent, moves extremities Results & Data Results & Data Vital Signs (Past 12 Hours) Vital Signs Temp Pulse Resp BP Pulse Ox O2 Del Method 09/10/24 07:48 37.1 C 110 H 16 127/89 92 Room Air 09/10/24 07:06 108 H 20 93 Room Air 09/09/24 23:13 90 09/09/24 20:33 36.6 C 124 H 18 137/83 95 Room Air 09/09/24 20:30 Room Air Laboratory Results 09/10/24 09/06/24 Range/Units 06:00 Unknown WBC 16.48 H (4.8-10.8) K/ul RBC 3.70 L (4.20-5.40) M/uL Hgb 10.3 L (12.0-16.0) g/dl Hct 30.9 L (37.0-47.0) % MCV 83.5 (80.0-100.0) fL MCH 27.8 (25.0-34.0) pg MCHC 33.3 (32.0-36.0) g/dL RDW Std Deviation 38.3 (36.4-46.3) fL RDW Coeff of Itzel 12.6 (11.5-14.5) % Plt Count 458 H (130-400) K/uL MPV 9.2 L (9.4-12.4) fL Sodium 134 L (136-145) mmol/L Potassium 3.5 (3.5-5.1) mmol/L Chloride 99 (98-107) mmol/L Carbon Dioxide 26 (21-32) mmol/L Anion Gap 9 (3-11) BUN 6 (6-23) mg/dl Creatinine 0.59 L (0.6-1.2) mg/dl Est Cr Clr Drug Dosing 118.4 ml/min eGFR 111.10 BUN/Creatinine Ratio 10.2 (10-20) Glucose 117 H (70-99(Fasting)) mg/dl Calcium 8.6 (8.6-10.3) mg/dl Phosphorus 3.7 (2.5-4.9) mg/dl Magnesium 1.8 (1.7-2.4) mg/dl Total Bilirubin 0.6 (0.2-1.0) mg/dl AST 51 H (13-39) U/L ALT 74 H (7-52) U/L Alkaline Phosphatase 110 H (34-104) U/L Total Protein 6.7 (6.0-8.3) gm/dl Albumin 3.0 L (3.4-5.0) gm/dl Globulin 3.7 (2.5-4.0) gm/dl Albumin/Globulin Ratio 0.8 L (0.9-2) Urine Legionella Ag SEE NOTE Medications Administered Current Inpatient Medications Acetaminophen (Acetaminophen 325 Mg Tab) 650 mg PO Q4H PRN PRN Reason: pain/fever Stop: 10/06/24 04:16 Last Admin: 09/10/24 05:03 Dose: 650 mg Albuterol (Albut/Ipratrop 3mg/0.5mg Neb 3 Ml Vial) 3 ml NEB BIDR [facility]; Protocol Stop: 10/06/24 11:29 Last Admin: 09/10/24 07:06 Dose: 3 ml Benzonatate (Benzonatate 100 Mg Capsule) 100 mg PO TID PRN PRN Reason: Cough Stop: 10/06/24 04:17 Last Admin: 09/10/24 05:03 Dose: 100 mg Enoxaparin Sodium (Enoxaparin Inj 40 Mg/0.4 Ml Syr) 40 mg SQ QAM [facility] Stop: 10/06/24 08:59 Last Admin: 09/09/24 08:30 Dose: 40 mg Guaifenesin (Guaifenesin 600 Mg Tabcr) 600 mg PO Q12 [facility] Stop: 10/06/24 20:59 Last Admin: 09/09/24 20:32 Dose: 600 mg Hydroxyzine HCl (Hydroxyzine Hcl 10 Mg Tab) 10 mg PO QID PRN PRN Reason: Anxiety Stop: 10/06/24 04:14 Promethazine HCl (Phenergan) 6.25 mg in 50.25 mls @ 201 mls/hr IV Q6H PRN PRN Reason: Nausea And Vomiting Stop: 10/06/24 04:14 Ampicillin Sodium/Sulbactam Sodium (Unasyn) 3,000 mg in 100 mls @ 200 mls/hr IV Q6H [facility] Stop: 09/13/24 15:59 Last Infusion: 09/10/24 05:47 Dose: Infused Ibuprofen (Ibuprofen 600 Mg Tab) 600 mg PO Q6H PRN PRN Reason: Pain/pleurisy Stop: 10/06/24 13:21 Last Admin: 09/09/24 17:23 Dose: 600 mg Ipratropium [place] (Ipratropium [place] Neb Soln 0.02% 0.5mg/2.5ml Vial) 0.5 mg INH Q4H PRN PRN Reason: sob wheeze Stop: 10/06/24 04:18 Levalbuterol HCl (Levalbuterol 1.25 Mg/3 Ml Neb) 1.25 mg NEB Q4H PRN PRN Reason: sob wheeze Stop: 10/06/24 04:18 Levothyroxine Sodium (Levothyroxine Sodium 175 Mcg Tablet) 175 mcg PO DAILYBB [facility] Stop: 10/06/24 06:29 Last Admin: 09/10/24 05:04 Dose: 175 mcg Oseltamivir Phosphate (Oseltamivir Phosphate 75 Mg Cap) 75 mg PO BID [facility]; Protocol Stop: 09/11/24 20:59 Last Admin: 09/09/24 20:32 Dose: 75 mg Oxycodone HCl (Oxycodone Hcl Ir 5 Mg Tab (Immediate Release)) 5 mg PO Q4H PRN PRN Reason: Pain Stop: 09/20/24 04:14 Last Admin: 09/10/24 03:32 Dose: 5 mg Prenat Multivit/[place]/Iron/Folic Ac ( Vitamin 1 Tab) 1 tab PO DAILY [facility] Stop: 10/06/24 08:59 Last Admin: 09/09/24 08:29 Dose: 1 tab Sodium Chloride (Sodium Chlor 7% 4 Ml Neb) 4 ml NEB BIDR [facility] Stop: 10/06/24 18:59 Last Admin: 09/10/24 07:06 Dose: 4 ml
[2024-09-10] MEDS: POTASSIUM CHLORIDE CRTAB 20 MEQ TABCR PO STA (09:22)
[2024-09-10] MEDS: MAGNESIUM SULFATE / D5W 1 GM/100 ML BAG IV ONE (10:53)
--- NOTE | 2024-09-10 16:58 | XRay Report ---
Clinical History: Pneumonia follow-up Technique: PA and lateral views of the chest were obtained Comparison is made to the prior examination dated 09/08/2024 Findings: There has been slight improvement in extensive left upper lobe alveolar consolidation. There is less severe left lower lobe infiltrate. The heart size is within normal limits. No pleural effusion or pneumothorax is seen. There is no definite pulmonary nodule. No fracture is noted. No foreign body is seen Impression: Slight interval improvement in left lung pneumonia Electronically signed by Kevin Julian 09-10-2024 4:58 PM
[2024-09-10] MEDS: ADVANCED PROBIOTIC 625 MG CAPSULE PO SCH (18:47)
[2024-09-11 07:00] LABS: Hematocrit (blood only) 31.1 % (37.0-47.0); Hemoglobin 10.4 g/dl (12.0-16.0); Mean Corpuscular Hemoglobin 28.3 pg (25.0-34.0); Mean Corpuscular Hgb Conc 33.4 g/dL (32.0-36.0); Mean Corpuscular Volume 84.7 fL (80.0-100.0); Platelet Count 460 K/uL (130-400); RDW Coefficient of Variation 12.7 % (11.5-14.5); Red Blood Count 3.67 M/uL (4.20-5.40); White Blood Count 15.88 K/ul (4.8-10.8)
[2024-09-11 07:28] LABS: Albumin Globulin Ratio 0.8 (0.9-2); BUN Creatinine Ratio 13.3 (10-20); Bilirubin,Total 0.5 mg/dl (0.2-1.0); Calcium 8.6 mg/dl (8.6-10.3); Creatinine Clr Calc Pharmacy 116.4 ml/min; Globulin 3.7 gm/dl (2.5-4.0); Phosphorus 3.7 mg/dl (2.5-4.9); Potassium 3.9 mmol/L (3.5-5.1); Total Protein 6.7 gm/dl (6.0-8.3)
--- NOTE | 2024-09-11 10:17 | Communication Note ---
Date of Service: September 11, 2024 Reports or patient subjectively not improving. Remains afebrile on RA, wbc mildly elevated at 15.88. Repeat Bclx negative, on IV unasyn. Attempted to call patient on cell phone twice without answer. Plan -Continue Unasyn at current dose -Recommend CT chest to evaluate for empyema and/or abscess formation in setting of cavitary lesion -ID will continue to follow Case discussed with ID attending Dr. Dominguez
[2024-09-11] MEDS: OPTIRAY 320 100ml IV ONE (10:57)
--- NOTE | 2024-09-11 11:04 | Hospitalist Progress Note ---
Date of Service September 11, 2024 Assessment & Plan (1) Severe sepsis: (2) Influenza due to identified novel influenza A virus with pneumonia: (3) Streptococcal bacteremia: (4) Cavitary pneumonia: (5) Prediabetes: (6) Pleurisy with influenza: Plan (1) Sepsis: Strep bacteremia + Influenza Secondary to influenza pneumonia with secondary bacterial infection Chest pain secondary to pneumonia rule out PE given risk factors IMPRESSION: 1. No pulmonary emboli identified. 2. Left lung predominant multifocal pneumonia includes a 2.9 cm centrally cavitary consolidation within the left lower lobe. Findings are suggestive of necrotizing pneumonia. Close follow-up recommended along with sputum analysis. Two-month follow-up chest CT after treatment course suggested. 3. Trace left pleural effusion. Admitted to PCU initially, now on Med/Surg floor Blood cultx positive for Strep Repeat blood cultx - pending Initially on Ceftriaxone and Doxycycline, ID consulted switched to Unasyn Tamiflu course Pulmonary med. consulted - 1. Strep pyogenes bacteremia. Per infectious disease consultation. 2. Multifocal pneumonia: Suspect this is related to group A strep as well. Can de-escalate antimicrobials to orals as directed by ID. Discontinue doxycycline 3. Recommend follow-up chest imaging in 2 to 4 weeks. 4. Influenza A: Complete course of Tamiflu. ID consulted - Patient initially presenting to Urgent Care with influenza A infection unfortunately, presenting to the ED several days later with superadded bacterial infection, likely beta Streptococcus group A as seen on blood culture. She remains hemodynamically stable on room air, improving on CTX with sensitivities showing AYDIN penicillin<0.03 -Discontinue Ceftriaxone -Start Unasyn 3g IV q6hrs, will opt to cover anaerobes in setting of cavitation on CT chest -Please obtain repeat bacterial blood culture in the setting of gram positive bacteremia -If blood repeat blood cultures remain negative for 48hrs and patient remains stable then ok to discharge on Augmentin po TID for a total of 4 weeks treatment from 09/06/24 through 10/04/24 -If blood cultures return positive or patient worsens then please reach out to our service for further recommendations 09/10/2024 WBC increased, pt reports not feeling much better will repeat CXR, repeat CBC tmrw AM, if continues to increase will further discuss w/ ID LFTs elevated, no abd. pain, trend LFTs, CMP ordered for tmrw AM CXR - Impression: Slight interval improvement in left lung pneumonia 09/11 Discussed w/ ID again today - recommend to obtain CT chest w/ con to eval for poss. abscess or empyema. Pt in agreement Hyponatremia, hypokalemia, hypomagnesemia secondary to illness Replete and monitor Hypothyroidism, euthyroid as of last year's outpatient TSH current TSH 0.8 Hx of gestational DM as per records. Current A1c 6.3% - follow up as outpt DVT prophylaxis per Lovenox subcu Full code Admission and Anticipated Discharge Date Admission Date: September 06, 2024 Subjective Pt seen in follow up, + Flu, cavitary pna, strep bacteremia Was seen by pulm. and by ID, switched to Unasyn Currently laying in bed in NAD, on RA but not feeling well, says she does not feel much improved since coming to the hospital Repeat blood cultx pending LFTs elevated, no abd. pain, n/v WBC elevated. Discussed w/ ID again today - recommend to obtain CT chest to eval for poss. abscess or empyema. Pt is in agreement. Review of Systems Review of Systems: All systems reviewed & are unremarkable except as noted in Subjective Physical Exam Physical Exam: Constitutional: WD/WN F in NAD HEENT: NC/AT. Mucous membranes moist. Lungs: Decreased breath sounds, crackles and rhonchi left mid lobe CV: regular Abdomen: Soft, nontender, nondistended Extremities: No significant edema, moves extremities Neuro: awake, alert, answers appropriately, speech fluent, moves extremities Results & Data Results & Data Vital Signs (Past 12 Hours) Vital Signs Temp Pulse Resp BP Pulse Ox O2 Del Method O2 Del Method 09/11/24 09:04 102 H 16 93 Room Air 09/11/24 07:59 37.7 C H 77 18 152/79 H 92 Room Air 09/11/24 02:00 Room Air Laboratory Results 09/11/24 09/06/24 Range/Units 05:58 02:43 WBC 15.88 H (4.8-10.8) K/ul RBC 3.67 L (4.20-5.40) M/uL Hgb 10.4 L (12.0-16.0) g/dl Hct 31.1 L (37.0-47.0) % MCV 84.7 (80.0-100.0) fL MCH 28.3 (25.0-34.0) pg MCHC 33.4 (32.0-36.0) g/dL RDW Std Deviation 39.0 (36.4-46.3) fL RDW Coeff of Itzel 12.7 (11.5-14.5) % Plt Count 460 H (130-400) K/uL MPV 9.0 L (9.4-12.4) fL Sodium 135 L (136-145) mmol/L Potassium 3.9 (3.5-5.1) mmol/L Chloride 102 (98-107) mmol/L Carbon Dioxide 28 (21-32) mmol/L Anion Gap 5 (3-11) BUN 8 (6-23) mg/dl Creatinine 0.60 (0.6-1.2) mg/dl Est Cr Clr Drug Dosing 116.4 ml/min eGFR 110.65 BUN/Creatinine Ratio 13.3 (10-20) Glucose 108 H (70-99(Fasting)) mg/dl Calcium 8.6 (8.6-10.3) mg/dl Phosphorus 3.7 (2.5-4.9) mg/dl Magnesium 2.0 (1.7-2.4) mg/dl Total Bilirubin 0.5 (0.2-1.0) mg/dl AST 39 (13-39) U/L ALT 63 H (7-52) U/L Alkaline Phosphatase 108 H (34-104) U/L Total Protein 6.7 (6.0-8.3) gm/dl Albumin 3.0 L (3.4-5.0) gm/dl Globulin 3.7 (2.5-4.0) gm/dl Albumin/Globulin Ratio 0.8 L (0.9-2) Miscellaneous Test See Scanned Report Medications Administered Current Inpatient Medications Acetaminophen (Acetaminophen 325 Mg Tab) 650 mg PO Q4H PRN PRN Reason: pain/fever Stop: 10/06/24 04:16 Last Admin: 09/11/24 06:29 Dose: 650 mg Albuterol (Albut/Ipratrop 3mg/0.5mg Neb 3 Ml Vial) 3 ml NEB BIDR [facility]; Protocol Stop: 10/06/24 11:29 Last Admin: 09/11/24 09:01 Dose: 3 ml Benzonatate (Benzonatate 100 Mg Capsule) 100 mg PO TID PRN PRN Reason: Cough Stop: 10/06/24 04:17 Last Admin: 09/10/24 15:21 Dose: 100 mg Enoxaparin Sodium (Enoxaparin Inj 40 Mg/0.4 Ml Syr) 40 mg SQ QAM [facility] Stop: 10/06/24 08:59 Last Admin: 09/11/24 08:44 Dose: 40 mg Guaifenesin (Guaifenesin 600 Mg Tabcr) 600 mg PO Q12 [facility] Stop: 10/06/24 20:59 Last Admin: 09/11/24 08:44 Dose: 600 mg Hydroxyzine HCl (Hydroxyzine Hcl 10 Mg Tab) 10 mg PO QID PRN PRN Reason: Anxiety Stop: 10/06/24 04:14 Promethazine HCl (Phenergan) 6.25 mg in 50.25 mls @ 201 mls/hr IV Q6H PRN PRN Reason: Nausea And Vomiting Stop: 10/06/24 04:14 Ampicillin Sodium/Sulbactam Sodium (Unasyn) 3,000 mg in 100 mls @ 200 mls/hr IV Q6H [facility] Stop: 09/13/24 15:59 Last Admin: 09/11/24 10:11 Dose: 200 mls/hr Ibuprofen (Ibuprofen 600 Mg Tab) 600 mg PO Q6H PRN PRN Reason: Pain/pleurisy Stop: 10/06/24 13:21 Last Admin: 09/10/24 21:33 Dose: 600 mg Ioversol (Optiray 320 100ml) 95 ml IV ONCE ONE Stop: 09/11/24 10:58 Last Admin: 09/11/24 10:57 Dose: 95 ml Ipratropium [place] (Ipratropium [place] Neb Soln 0.02% 0.5mg/2.5ml Vial) 0.5 mg INH Q4H PRN PRN Reason: sob wheeze Stop: 10/06/24 04:18 Lactobacillus Acidophilus (Advanced Probiotic 625 Mg Capsule) 1,250 mg PO DAILY [facility] Stop: 10/10/24 18:29 Last Admin: 09/11/24 08:44 Dose: 1,250 mg Levalbuterol HCl (Levalbuterol 1.25 Mg/3 Ml Neb) 1.25 mg NEB Q4H PRN PRN Reason: sob wheeze Stop: 10/06/24 04:18 Levothyroxine Sodium (Levothyroxine Sodium 175 Mcg Tablet) 175 mcg PO DAILYBB [facility] Stop: 10/06/24 06:29 Last Admin: 09/11/24 06:30 Dose: 175 mcg Oseltamivir Phosphate (Oseltamivir Phosphate 75 Mg Cap) 75 mg PO BID [facility]; Protocol Stop: 09/11/24 20:59 Last Admin: 09/11/24 08:43 Dose: 75 mg Oxycodone HCl (Oxycodone Hcl Ir 5 Mg Tab (Immediate Release)) 5 mg PO Q4H PRN PRN Reason: Pain Stop: 09/20/24 04:14 Last Admin: 09/10/24 03:32 Dose: 5 mg Prenat Multivit/[place]/Iron/Folic Ac ( Vitamin 1 Tab) 1 tab PO DAILY [facility] Stop: 10/06/24 08:59 Last Admin: 09/11/24 08:43 Dose: 1 tab Sodium Chloride (Sodium Chlor 7% 4 Ml Neb) 4 ml NEB BIDR [facility] Stop: 10/06/24 18:59 Last Admin: 09/11/24 09:01 Dose: 4 ml
--- NOTE | 2024-09-11 12:46 | CT Scan Report ---
CHEST CT WITH CONTRAST CT DOSE: 599.79 mGy.cm HISTORY: Acute shortness of breath assess for abscess formation/ empyema TECHNIQUE: Multiaxial CT images of the chest were performed following the IV administration of 95 cc of Optiray. A dose lowering technique was utilized adhering to the principles of ALARA. COMPARISON: Chest radiograph of same day and also to 09/08/2024, CT-09/06/2024 FINDINGS: Heart is normal in size. No pericardial effusion or thoracic aortic aneurysm. No pulmonary emboli identified. No thyroid nodule. Subcentimeter and borderline enlarged mediastinal and hilar lymph nodes are likely physiologic. Small left pleural effusion has mildly increased in size. Trace right pleural effusion. No pneumothorax. Intralobular septal thickening with patchy consolidative densities noted within the left upper and lower lobes. 2.9 cm centrally cavitary consolidation of the left lower lobe on image 115 series 4. Additional consolidation of the left lower lobe demonstrates progressive central cavita tion. Mild patchy groundglass densities throughout the right lung. Central airways are patent. No acute upper abdominal abnormality. Unremarkable soft tissues. No acute fracture. IMPRESSION: 1. Mild progression of the cavitary pneumonia throughout the left lung. 2. Trace right and small left pleural effusions have increased in size from prior. 3. Reactive mediastinal and hilar lymphadenopathy. ACT 112: Negative or not required by law. Electronically signed by: Benton Abdi M.D. 09/11/2024 12:45 PM
[2024-09-11] MEDS: DOCUSATE SODIUM 100 MG CAP PO ONE (14:22)
[2024-09-11] MEDS: POLYETHYLENE (MIRALAX) 17 GM PACK PO PRN (22:06)
[2024-09-12 06:31] LABS: Hematocrit (blood only) 29.9 % (37.0-47.0); Hemoglobin 9.9 g/dl (12.0-16.0); Mean Corpuscular Hemoglobin 28.2 pg (25.0-34.0); Mean Corpuscular Hgb Conc 33.1 g/dL (32.0-36.0); Mean Corpuscular Volume 85.2 fL (80.0-100.0); Platelet Count 500 K/uL (130-400); RDW Coefficient of Variation 12.8 % (11.5-14.5); RDW Standard Deviation 39.8 fL (36.4-46.3); Red Blood Count 3.51 M/uL (4.20-5.40); White Blood Count 17.86 K/ul (4.8-10.8)
[2024-09-12 06:52] LABS: Albumin Globulin Ratio 0.8 (0.9-2); BUN Creatinine Ratio 9.4 (10-20); Bilirubin,Total 0.4 mg/dl (0.2-1.0); Calcium 8.7 mg/dl (8.6-10.3); Creatinine Clr Calc Pharmacy 109.1 ml/min; Globulin 3.9 gm/dl (2.5-4.0); Phosphorus 4.3 mg/dl (2.5-4.9); Potassium 4.1 mmol/L (3.5-5.1); Total Protein 6.9 gm/dl (6.0-8.3)
[2024-09-12] MEDS: DOCUSATE SODIUM 100 MG CAP PO SCH (08:37)
--- NOTE | 2024-09-12 16:34 | Hospitalist Progress Note ---
Date of Service September 12, 2024 Assessment & Plan (1) Severe sepsis: (2) Influenza due to identified novel influenza A virus with pneumonia: (3) Streptococcal bacteremia: (4) Cavitary pneumonia: (5) Prediabetes: (6) Pleurisy with influenza: Plan (1) Sepsis: Strep bacteremia + Influenza Secondary to influenza pneumonia with secondary bacterial infection Chest pain secondary to pneumonia rule out PE given risk factors IMPRESSION: 1. No pulmonary emboli identified. 2. Left lung predominant multifocal pneumonia includes a 2.9 cm centrally cavitary consolidation within the left lower lobe. Findings are suggestive of necrotizing pneumonia. Close follow-up recommended along with sputum analysis. Two-month follow-up chest CT after treatment course suggested. 3. Trace left pleural effusion. Admitted to PCU initially, now on Med/Surg floor Blood cultx positive for Strep Repeat blood cultx - pending Initially on Ceftriaxone and Doxycycline, ID consulted switched to Unasyn Tamiflu course Pulmonary med. consulted - 1. Strep pyogenes bacteremia. Per infectious disease consultation. 2. Multifocal pneumonia: Suspect this is related to group A strep as well. Can de-escalate antimicrobials to orals as directed by ID. Discontinue doxycycline 3. Recommend follow-up chest imaging in 2 to 4 weeks. 4. Influenza A: Complete course of Tamiflu. ID consulted - Patient initially presenting to Urgent Care with influenza A infection unfortunately, presenting to the ED several days later with superadded bacterial infection, likely beta Streptococcus group A as seen on blood culture. She remains hemodynamically stable on room air, improving on CTX with sensitivities showing AYDIN penicillin<0.03 -Discontinue Ceftriaxone -Start Unasyn 3g IV q6hrs, will opt to cover anaerobes in setting of cavitation on CT chest -Please obtain repeat bacterial blood culture in the setting of gram positive bacteremia -If blood repeat blood cultures remain negative for 48hrs and patient remains stable then ok to discharge on Augmentin po TID for a total of 4 weeks treatment from 09/06/24 through 10/04/24 -If blood cultures return positive or patient worsens then please reach out to our service for further recommendations 09/10/2024 WBC increased, pt reports not feeling much better will repeat CXR, repeat CBC tmrw AM, if continues to increase will further discuss w/ ID LFTs elevated, no abd. pain, trend LFTs, CMP ordered for tmrw AM CXR - Impression: Slight interval improvement in left lung pneumonia 09/11 Discussed w/ ID again today - recommend to obtain CT chest w/ con to eval for poss. abscess or empyema. Pt in agreement CT showed extensive pneumonia but no abscess formation. Discussed results w/ ID and with pulmonary med. Dr. Egan - expected and will take weeks to resolve 09/12 Pt reports feeling little improved. Walked in hallway. Able to cough some sputum up. Hyponatremia, hypokalemia, hypomagnesemia secondary to illness Replete and monitor Hypothyroidism, euthyroid as of last year's outpatient TSH current TSH 0.8 Hx of gestational DM as per records. Current A1c 6.3% - follow up as outpt DVT prophylaxis per Lovenox subcu Full code Admission and Anticipated Discharge Date Admission Date: September 06, 2024 Subjective Pt seen in follow up, + Flu, cavitary pna, strep bacteremia Was seen by pulm. and by ID, switched to Unasyn Currently laying in bed in NAD, on RA Repeat blood cultx so far negat. LFTs elevated, no abd. pain, n/v WBC elevated. Pt reports feeling little improved. Walked in hallway. Able to cough some sputum up. Review of Systems Review of Systems: All systems reviewed & are unremarkable except as noted in Subjective Physical Exam Physical Exam: Constitutional: WD/WN F in NAD HEENT: NC/AT. Mucous membranes moist. Lungs: Decreased breath sounds, crackles and rhonchi left mid lobe CV: regular Abdomen: Soft, nontender, nondistended Extremities: No significant edema, moves extremities Neuro: awake, alert, answers appropriately, speech fluent, moves extremities Results & Data Results & Data Vital Signs (Past 12 Hours) Vital Signs Temp Pulse Resp BP Pulse Ox O2 Del Method 09/12/24 16:10 37.1 C 102 H 18 117/79 93 Room Air 09/12/24 11:18 Room Air 09/12/24 07:44 37 C 99 H 18 102/70 94 Room Air 09/12/24 07:34 92 H 16 92 Room Air Laboratory Results 09/12/24 Range/Units 05:55 WBC 17.86 H (4.8-10.8) K/ul RBC 3.51 L (4.20-5.40) M/uL Hgb 9.9 L (12.0-16.0) g/dl Hct 29.9 L (37.0-47.0) % MCV 85.2 (80.0-100.0) fL MCH 28.2 (25.0-34.0) pg MCHC 33.1 (32.0-36.0) g/dL RDW Std Deviation 39.8 (36.4-46.3) fL RDW Coeff of Itzel 12.8 (11.5-14.5) % Plt Count 500 H (130-400) K/uL MPV 9.0 L (9.4-12.4) fL Sodium 135 L (136-145) mmol/L Potassium 4.1 (3.5-5.1) mmol/L Chloride 99 (98-107) mmol/L Carbon Dioxide 28 (21-32) mmol/L Anion Gap 8 (3-11) BUN 6 (6-23) mg/dl Creatinine 0.64 (0.6-1.2) mg/dl Est Cr Clr Drug Dosing 109.1 ml/min eGFR 108.94 BUN/Creatinine Ratio 9.4 L (10-20) Glucose 128 H (70-99(Fasting)) mg/dl Calcium 8.7 (8.6-10.3) mg/dl Phosphorus 4.3 (2.5-4.9) mg/dl Magnesium 2.0 (1.7-2.4) mg/dl Total Bilirubin 0.4 (0.2-1.0) mg/dl AST 35 (13-39) U/L ALT 60 H (7-52) U/L Alkaline Phosphatase 114 H (34-104) U/L Total Protein 6.9 (6.0-8.3) gm/dl Albumin 3.0 L (3.4-5.0) gm/dl Globulin 3.9 (2.5-4.0) gm/dl Albumin/Globulin Ratio 0.8 L (0.9-2) Medications Administered Current Inpatient Medications Acetaminophen (Acetaminophen 325 Mg Tab) 650 mg PO Q4H PRN PRN Reason: pain/fever Stop: 10/06/24 04:16 Last Admin: 09/12/24 12:03 Dose: 650 mg Albuterol (Albut/Ipratrop 3mg/0.5mg Neb 3 Ml Vial) 3 ml NEB BIDR [facility]; Protocol Stop: 10/06/24 11:29 Last Admin: 09/12/24 07:33 Dose: 3 ml Benzonatate (Benzonatate 100 Mg Capsule) 100 mg PO TID PRN PRN Reason: Cough Stop: 10/06/24 04:17 Last Admin: 09/11/24 17:14 Dose: 100 mg Docusate Sodium (Docusate Sodium 100 Mg Cap) 100 mg PO QAM [facility] Stop: 10/12/24 08:59 Last Admin: 09/12/24 08:37 Dose: 100 mg Enoxaparin Sodium (Enoxaparin Inj 40 Mg/0.4 Ml Syr) 40 mg SQ QAM [facility] Stop: 10/06/24 08:59 Last Admin: 09/12/24 08:21 Dose: 40 mg Guaifenesin (Guaifenesin 600 Mg Tabcr) 600 mg PO Q12 [facility] Stop: 10/06/24 20:59 Last Admin: 09/12/24 08:23 Dose: 600 mg Hydroxyzine HCl (Hydroxyzine Hcl 10 Mg Tab) 10 mg PO QID PRN PRN Reason: Anxiety Stop: 10/06/24 04:14 Promethazine HCl (Phenergan) 6.25 mg in 50.25 mls @ 201 mls/hr IV Q6H PRN PRN Reason: Nausea And Vomiting Stop: 10/06/24 04:14 Ampicillin Sodium/Sulbactam Sodium (Unasyn) 3,000 mg in 100 mls @ 200 mls/hr IV Q6H [facility] Stop: 09/13/24 15:59 Last Admin: 09/12/24 16:03 Dose: 200 mls/hr Ibuprofen (Ibuprofen 600 Mg Tab) 600 mg PO Q6H PRN PRN Reason: Pain/pleurisy Stop: 10/06/24 13:21 Last Admin: 09/10/24 21:33 Dose: 600 mg Ipratropium Drasco (Ipratropium [place]co Neb Soln 0.02% 0.5mg/2.5ml Vial) 0.5 mg INH Q4H PRN PRN Reason: sob wheeze Stop: 10/06/24 04:18 Lactobacillus Acidophilus (Advanced Probiotic 625 Mg Capsule) 1,250 mg PO DAILY [facility] Stop: 10/10/24 18:29 Last Admin: 09/12/24 08:22 Dose: 1,250 mg Levalbuterol HCl (Levalbuterol 1.25 Mg/3 Ml Neb) 1.25 mg NEB Q4H PRN PRN Reason: sob wheeze Stop: 10/06/24 04:18 Levothyroxine Sodium (Levothyroxine Sodium 175 Mcg Tablet) 175 mcg PO DAILYBB [facility] Stop: 10/06/24 06:29 Last Admin: 09/12/24 06:12 Dose: 175 mcg Oxycodone HCl (Oxycodone Hcl Ir 5 Mg Tab (Immediate Release)) 5 mg PO Q4H PRN PRN Reason: Pain Stop: 09/20/24 04:14 Last Admin: 09/12/24 11:51 Dose: 5 mg Polyethylene Glycol (Polyethylene (Miralax) 17 Gm Pack) 17 gm PO DAILY PRN PRN Reason: Constipation Stop: 10/11/24 21:47 Last Admin: 09/12/24 08:37 Dose: 17 gm Prenat Multivit/Labette/Iron/Folic Ac ( Vitamin 1 Tab) 1 tab PO DAILY [facility] Stop: 10/06/24 08:59 Last Admin: 09/12/24 08:23 Dose: 1 tab Sodium Chloride (Sodium Chlor 7% 4 Ml Neb) 4 ml NEB BIDR [facility] Stop: 10/06/24 18:59 Last Admin: 09/12/24 07:33 Dose: 4 ml
[2024-09-13 07:26] LABS: Hematocrit (blood only) 30.2 % (37.0-47.0); Hemoglobin 9.8 g/dl (12.0-16.0); Mean Corpuscular Hemoglobin 27.8 pg (25.0-34.0); Mean Corpuscular Hgb Conc 32.5 g/dL (32.0-36.0); Mean Corpuscular Volume 85.8 fL (80.0-100.0); Platelet Count 505 K/uL (130-400); RDW Coefficient of Variation 12.8 % (11.5-14.5); RDW Standard Deviation 39.8 fL (36.4-46.3); Red Blood Count 3.52 M/uL (4.20-5.40); White Blood Count 16.51 K/ul (4.8-10.8)
[2024-09-13 07:56] LABS: BUN Creatinine Ratio 9.7 (10-20); Calcium 8.9 mg/dl (8.6-10.3); Creatinine Clr Calc Pharmacy 112.6 ml/min; Phosphorus 4.7 mg/dl (2.5-4.9); Potassium 4.2 mmol/L (3.5-5.1)
--- NOTE | 2024-09-13 11:48 | Hospitalist Progress Note ---
Date of Service September 13, 2024 Assessment & Plan (1) Severe sepsis: (2) Influenza due to identified novel influenza A virus with pneumonia: (3) Streptococcal bacteremia: (4) Cavitary pneumonia: (5) Prediabetes: (6) Pleurisy with influenza: Plan (1) Sepsis: Strep bacteremia + Influenza Secondary to influenza pneumonia with secondary bacterial infection Chest pain secondary to pneumonia rule out PE given risk factors IMPRESSION: 1. No pulmonary emboli identified. 2. Left lung predominant multifocal pneumonia includes a 2.9 cm centrally cavitary consolidation within the left lower lobe. Findings are suggestive of necrotizing pneumonia. Close follow-up recommended along with sputum analysis. Two-month follow-up chest CT after treatment course suggested. 3. Trace left pleural effusion. Admitted to PCU initially, now on Med/Surg floor Blood cultx positive for Strep Repeat blood cultx - pending Initially on Ceftriaxone and Doxycycline, ID consulted switched to Unasyn Tamiflu course Pulmonary med. consulted - 1. Strep pyogenes bacteremia. Per infectious disease consultation. 2. Multifocal pneumonia: Suspect this is related to group A strep as well. Can de-escalate antimicrobials to orals as directed by ID. Discontinue doxycycline 3. Recommend follow-up chest imaging in 2 to 4 weeks. 4. Influenza A: Complete course of Tamiflu. ID consulted - Patient initially presenting to Urgent Care with influenza A infection unfortunately, presenting to the ED several days later with superadded bacterial infection, likely beta Streptococcus group A as seen on blood culture. She remains hemodynamically stable on room air, improving on CTX with sensitivities showing AYDIN penicillin<0.03 -Discontinue Ceftriaxone -Start Unasyn 3g IV q6hrs, will opt to cover anaerobes in setting of cavitation on CT chest -Please obtain repeat bacterial blood culture in the setting of gram positive bacteremia -If blood repeat blood cultures remain negative for 48hrs and patient remains stable then ok to discharge on Augmentin po TID for a total of 4 weeks treatment from 09/06/24 through 10/04/24 -If blood cultures return positive or patient worsens then please reach out to our service for further recommendations 09/10/2024 WBC increased, pt reports not feeling much better will repeat CXR, repeat CBC tmrw AM, if continues to increase will further discuss w/ ID LFTs elevated, no abd. pain, trend LFTs, CMP ordered for tmrw AM CXR - Impression: Slight interval improvement in left lung pneumonia 09/11 Discussed w/ ID again today - recommend to obtain CT chest w/ con to eval for poss. abscess or empyema. Pt in agreement CT showed extensive pneumonia but no abscess formation. Discussed results w/ ID and with pulmonary med. Dr. Egan - expected and will take weeks to resolve 09/12 Pt reports feeling little improved. Walked in hallway. Able to cough some sputum up. 09/13 hypertonic saline seems to help, still difficulty w/ bringing up sputum Hyponatremia, hypokalemia, hypomagnesemia secondary to illness Replete and monitor Hypothyroidism, euthyroid as of last year's outpatient TSH current TSH 0.8 Hx of gestational DM as per records. Current A1c 6.3% - follow up as outpt DVT prophylaxis per Lovenox subcu Full code Admission and Anticipated Discharge Date Admission Date: September 06, 2024 Subjective Pt seen in follow up, + Flu, cavitary pna, strep bacteremia Was seen by pulm. and by ID, switched to Unasyn Currently laying in bed in NAD, on RA Repeat blood cultx so far negat. LFTs elevated, no abd. pain, n/v WBC elevated., slightly improved from yesterday Pt reports feeling little improved. Walked in hallway. Able to cough some sputum up. says hypertonic saline helps Review of Systems Review of Systems: All systems reviewed & are unremarkable except as noted in Subjective Physical Exam Physical Exam: Constitutional: WD/WN F in NAD HEENT: NC/AT. Mucous membranes moist. Lungs: Decreased breath sounds, crackles and rhonchi left mid lobe CV: regular Abdomen: Soft, nontender, nondistended Extremities: No significant edema, moves extremities Neuro: awake, alert, answers appropriately, speech fluent, moves extremities Results & Data Results & Data Vital Signs (Past 12 Hours) Vital Signs Temp Pulse Resp BP Pulse Ox O2 Del Method 09/13/24 08:12 90 18 94 Room Air 09/13/24 07:46 37.5 C 54 L 18 106/70 94 Room Air Laboratory Results 09/13/24 Range/Units 06:53 WBC 16.51 H (4.8-10.8) K/ul RBC 3.52 L (4.20-5.40) M/uL Hgb 9.8 L (12.0-16.0) g/dl Hct 30.2 L (37.0-47.0) % MCV 85.8 (80.0-100.0) fL MCH 27.8 (25.0-34.0) pg MCHC 32.5 (32.0-36.0) g/dL RDW Std Deviation 39.8 (36.4-46.3) fL RDW Coeff of Itzel 12.8 (11.5-14.5) % Plt Count 505 H (130-400) K/uL MPV 9.0 L (9.4-12.4) fL Sodium 135 L (136-145) mmol/L Potassium 4.2 (3.5-5.1) mmol/L Chloride 100 (98-107) mmol/L Carbon Dioxide 28 (21-32) mmol/L Anion Gap 7 (3-11) BUN 6 (6-23) mg/dl Creatinine 0.62 (0.6-1.2) mg/dl Est Cr Clr Drug Dosing 112.6 ml/min eGFR 109.78 BUN/Creatinine Ratio 9.7 L (10-20) Glucose 112 H (70-99(Fasting)) mg/dl Calcium 8.9 (8.6-10.3) mg/dl Phosphorus 4.7 (2.5-4.9) mg/dl Magnesium 2.0 (1.7-2.4) mg/dl Medications Administered Current Inpatient Medications Acetaminophen (Acetaminophen 325 Mg Tab) 650 mg PO Q4H PRN PRN Reason: pain/fever Stop: 10/06/24 04:16 Last Admin: 09/13/24 11:30 Dose: 650 mg Albuterol (Albut/Ipratrop 3mg/0.5mg Neb 3 Ml Vial) 3 ml NEB BIDR [facility]; Protocol Stop: 10/06/24 11:29 Last Admin: 09/13/24 08:11 Dose: 3 ml Benzonatate (Benzonatate 100 Mg Capsule) 100 mg PO TID PRN PRN Reason: Cough Stop: 10/06/24 04:17 Last Admin: 09/13/24 04:04 Dose: 100 mg Docusate Sodium (Docusate Sodium 100 Mg Cap) [facility] Stop: 10/12/24 08:59 Last Admin: 09/13/24 08:53 Dose: Not Given Enoxaparin Sodium (Enoxaparin Inj 40 Mg/0.4 Ml Syr) 40 mg SQ QAM [facility] Stop: 10/06/24 08:59 Last Admin: 09/13/24 08:54 Dose: 40 mg Guaifenesin (Guaifenesin 600 Mg Tabcr) 600 mg PO Q12 [facility] Stop: 10/06/24 20:59 Last Admin: 09/13/24 08:55 Dose: 600 mg Hydroxyzine HCl (Hydroxyzine Hcl 10 Mg Tab) 10 mg PO QID PRN PRN Reason: Anxiety Stop: 10/06/24 04:14 Promethazine HCl (Phenergan) 6.25 mg in 50.25 mls @ 201 mls/hr IV Q6H PRN PRN Reason: Nausea And Vomiting Stop: 10/06/24 04:14 Ampicillin Sodium/Sulbactam Sodium (Unasyn) 3,000 mg in 100 mls @ 200 mls/hr IV Q6H [facility] Stop: 09/13/24 15:59 Last Infusion: 09/13/24 09:33 Dose: Infused Ibuprofen (Ibuprofen 600 Mg Tab) 600 mg PO Q6H PRN PRN Reason: Pain/pleurisy Stop: 10/06/24 13:21 Last Admin: 09/10/24 21:33 Dose: 600 mg Ipratropium Taylor (Ipratropium Taylor Neb Soln 0.02% 0.5mg/2.5ml Vial) 0.5 mg INH Q4H PRN PRN Reason: sob wheeze Stop: 10/06/24 04:18 Lactobacillus Acidophilus (Advanced Probiotic 625 Mg Capsule) 1,250 mg PO DAILY [facility] Stop: 10/10/24 18:29 Last Admin: 09/13/24 08:55 Dose: 1,250 mg Levalbuterol HCl (Levalbuterol 1.25 Mg/3 Ml Neb) 1.25 mg NEB Q4H PRN PRN Reason: sob wheeze Stop: 10/06/24 04:18 Levothyroxine Sodium (Levothyroxine Sodium 175 Mcg Tablet) [facility] Stop: 10/06/24 06:29 Last Admin: 09/13/24 06:12 Dose: 175 mcg Oxycodone HCl (Oxycodone Hcl Ir 5 Mg Tab (Immediate Release)) 5 mg PO Q4H PRN PRN Reason: Pain Stop: 09/20/24 04:14 Last Admin: 09/13/24 11:30 Dose: 5 mg Polyethylene Glycol (Polyethylene (Miralax) 17 Gm Pack) 17 gm PO DAILY PRN PRN Reason: Constipation Stop: 10/11/24 21:47 Last Admin: 09/12/24 08:37 Dose: 17 gm Prenat Multivit/[employer]/Iron/Folic Ac ( Vitamin 1 Tab) 1 tab PO DAILY [facility] Stop: 10/06/24 08:59 Last Admin: 09/13/24 08:55 Dose: 1 tab Sodium Chloride (Sodium Chlor 7% 4 Ml Neb) 4 ml NEB BIDR [facility] Stop: 10/06/24 18:59 Last Admin: 09/13/24 08:11 Dose: 4 ml
[2024-09-14 06:35] LABS: Hemoglobin 10.4 g/dl (12.0-16.0); Mean Corpuscular Hemoglobin 28.9 pg (25.0-34.0); Mean Corpuscular Hgb Conc 33.5 g/dL (32.0-36.0); Mean Corpuscular Volume 86.1 fL (80.0-100.0); Mean Platelet Volume 8.9 fL (9.4-12.4); Platelet Count 569 K/uL (130-400); RDW Coefficient of Variation 12.7 % (11.5-14.5); RDW Standard Deviation 39.9 fL (36.4-46.3); White Blood Count 14.94 K/ul (4.8-10.8)
[2024-09-14 06:59] LABS: BUN Creatinine Ratio 11.3 (10-20); Calcium 9.2 mg/dl (8.6-10.3); Creatinine Clr Calc Pharmacy 98.4 ml/min; Phosphorus 4.4 mg/dl (2.5-4.9); Potassium 4.3 mmol/L (3.5-5.1)
--- NOTE | 2024-09-14 08:17 | Hospitalist Progress Note ---
Date of Service September 14, 2024 Assessment & Plan (1) Severe sepsis: (2) Influenza due to identified novel influenza A virus with pneumonia: (3) Streptococcal bacteremia: (4) Cavitary pneumonia: (5) Prediabetes: (6) Pleurisy with influenza: Plan (1) Sepsis: Strep bacteremia + Influenza Secondary to influenza pneumonia with secondary bacterial infection Chest pain secondary to pneumonia rule out PE given risk factors IMPRESSION: 1. No pulmonary emboli identified. 2. Left lung predominant multifocal pneumonia includes a 2.9 cm centrally cavitary consolidation within the left lower lobe. Findings are suggestive of necrotizing pneumonia. Close follow-up recommended along with sputum analysis. Two-month follow-up chest CT after treatment course suggested. 3. Trace left pleural effusion. Admitted to PCU initially, now on Med/Surg floor Blood cultx positive for Strep Repeat blood cultx - pending Initially on Ceftriaxone and Doxycycline, ID consulted switched to Unasyn Tamiflu course Pulmonary med. consulted - 1. Strep pyogenes bacteremia. Per infectious disease consultation. 2. Multifocal pneumonia: Suspect this is related to group A strep as well. Can de-escalate antimicrobials to orals as directed by ID. Discontinue doxycycline 3. Recommend follow-up chest imaging in 2 to 4 weeks. 4. Influenza A: Complete course of Tamiflu. ID consulted - Patient initially presenting to Urgent Care with influenza A infection unfortunately, presenting to the ED several days later with superadded bacterial infection, likely beta Streptococcus group A as seen on blood culture. She remains hemodynamically stable on room air, improving on CTX with sensitivities showing AYDIN penicillin<0.03 -Discontinue Ceftriaxone -Start Unasyn 3g IV q6hrs, will opt to cover anaerobes in setting of cavitation on CT chest -Please obtain repeat bacterial blood culture in the setting of gram positive bacteremia -If blood repeat blood cultures remain negative for 48hrs and patient remains stable then ok to discharge on Augmentin po TID for a total of 4 weeks treatment from 09/06/24 through 10/04/24 -If blood cultures return positive or patient worsens then please reach out to our service for further recommendations 09/10/2024 WBC increased, pt reports not feeling much better will repeat CXR, repeat CBC tmrw AM, if continues to increase will further discuss w/ ID LFTs elevated, no abd. pain, trend LFTs, CMP ordered for tmrw AM CXR - Impression: Slight interval improvement in left lung pneumonia 09/11 Discussed w/ ID again today - recommend to obtain CT chest w/ con to eval for poss. abscess or empyema. Pt in agreement CT showed extensive pneumonia but no abscess formation. Discussed results w/ ID and with pulmonary med. Dr. Egan - expected and will take weeks to resolve 09/12 Pt reports feeling little improved. Walked in hallway. Able to cough some sputum up. 09/13 hypertonic saline seems to help, still difficulty w/ bringing up sputum Hyponatremia, hypokalemia, hypomagnesemia secondary to illness Replete and monitor Hypothyroidism, euthyroid as of last year's outpatient TSH current TSH 0.8 Hx of gestational DM as per records. Current A1c 6.3% - follow up as outpt DVT prophylaxis per Lovenox subcu Full code Admission and Anticipated Discharge Date Admission Date: September 06, 2024 Subjective Pt seen in follow up, + Flu, cavitary pna, strep bacteremia Was seen by pulm. and by ID, switched to Unasyn Currently laying in bed in NAD, on RA Repeat blood cultx so far negat. WBC elevated., improved from yesterday Pt reports feeling little improved. Walked in hallway. Able to cough some sputum up. says hypertonic saline helps Review of Systems Review of Systems: All systems reviewed & are unremarkable except as noted in Subjective Physical Exam Physical Exam: Constitutional: WD/WN F in NAD HEENT: NC/AT. Mucous membranes moist. Lungs: Decreased breath sounds, crackles and rhonchi left mid lobe CV: regular Abdomen: Soft, nontender, nondistended Extremities: No significant edema, moves extremities Neuro: awake, alert, answers appropriately, speech fluent, moves extremities Results & Data Results & Data Vital Signs (Past 12 Hours) Vital Signs Temp Pulse Resp BP Pulse Ox O2 Del Method 09/14/24 07:22 37.7 C H 107 H 18 138/84 92 Room Air 09/14/24 07:22 107 H 17 92 Room Air 09/13/24 21:00 95 H 20 95 Room Air 09/13/24 20:43 37.5 C 116 H 22 123/81 93 Room Air 09/13/24 20:34 106 H 18 96 Room Air 09/13/24 20:20 Room Air Laboratory Results 09/14/24 Range/Units 06:01 WBC 14.94 H (4.8-10.8) K/ul RBC 3.60 L (4.20-5.40) M/uL Hgb 10.4 L (12.0-16.0) g/dl Hct 31.0 L (37.0-47.0) % MCV 86.1 (80.0-100.0) fL MCH 28.9 (25.0-34.0) pg MCHC 33.5 (32.0-36.0) g/dL RDW Std Deviation 39.9 (36.4-46.3) fL RDW Coeff of [place]zel 12.7 (11.5-14.5) % Plt Count 569 H (130-400) K/uL MPV 8.9 L (9.4-12.4) fL Sodium 135 L (136-145) mmol/L Potassium 4.3 (3.5-5.1) mmol/L Chloride 98 (98-107) mmol/L Carbon Dioxide 29 (21-32) mmol/L Anion Gap 8 (3-11) BUN 8 (6-23) mg/dl Creatinine 0.71 (0.6-1.2) mg/dl Est Cr Clr Drug Dosing 98.4 ml/min eGFR 104.82 BUN/Creatinine Ratio 11.3 (10-20) Glucose 114 H (70-99(Fasting)) mg/dl Calcium 9.2 (8.6-10.3) mg/dl Phosphorus 4.4 (2.5-4.9) mg/dl Magnesium 2.0 (1.7-2.4) mg/dl Medications Administered Current Inpatient Medications Acetaminophen (Acetaminophen 325 Mg Tab) 650 mg PO Q4H PRN PRN Reason: pain/fever Stop: 10/06/24 04:16 Last Admin: 09/14/24 05:49 Dose: 650 mg Albuterol (Albut/Ipratrop 3mg/0.5mg Neb 3 Ml Vial) 3 ml NEB BIDR [facility]; Protocol Stop: 10/06/24 11:29 Last Admin: 09/14/24 07:21 Dose: 3 ml Benzonatate (Benzonatate 100 Mg Capsule) 100 mg PO TID PRN PRN Reason: Cough Stop: 10/06/24 04:17 Last Admin: 09/13/24 04:04 Dose: 100 mg Docusate Sodium (Docusate Sodium 100 Mg Cap) 100 mg PO QAM [facility] Stop: 10/12/24 08:59 Last Admin: 09/13/24 08:53 Dose: Not Given Enoxaparin Sodium (Enoxaparin Inj 40 Mg/0.4 Ml Syr) 40 mg SQ QAM [facility] Stop: 10/06/24 08:59 Last Admin: 09/13/24 08:54 Dose: 40 mg Guaifenesin (Guaifenesin 600 Mg Tabcr) 600 mg PO Q12 [facility] Stop: 10/06/24 20:59 Last Admin: 09/13/24 20:14 Dose: 600 mg Hydroxyzine HCl (Hydroxyzine Hcl 10 Mg Tab) 10 mg PO QID PRN PRN Reason: Anxiety Stop: 10/06/24 04:14 Promethazine HCl (Phenergan) 6.25 mg in 50.25 mls @ 201 mls/hr IV Q6H PRN PRN Reason: Nausea And Vomiting Stop: 10/06/24 04:14 Ampicillin Sodium/Sulbactam Sodium (Unasyn) 3,000 mg in 100 mls @ 200 mls/hr IV Q6H [facility] Stop: 09/21/24 08:29 Ibuprofen (Ibuprofen 600 Mg Tab) 600 mg PO Q6H PRN PRN Reason: Pain/pleurisy Stop: 10/06/24 13:21 Last Admin: 09/14/24 07:30 Dose: 600 mg Ipratropium [place] (Ipratropium [place] Neb Soln 0.02% 0.5mg/2.5ml Vial) 0.5 mg INH Q4H PRN PRN Reason: sob wheeze Stop: 10/06/24 04:18 Lactobacillus Acidophilus (Advanced Probiotic 625 Mg Capsule) 1,250 mg PO DAILY [facility] Stop: 10/10/24 18:29 Last Admin: 09/13/24 08:55 Dose: 1,250 mg Levalbuterol HCl (Levalbuterol 1.25 Mg/3 Ml Neb) 1.25 mg NEB Q4H PRN PRN Reason: sob wheeze Stop: 10/06/24 04:18 Levothyroxine Sodium (Levothyroxine Sodium 175 Mcg Tablet) 175 mcg PO DAILYBB [facility] Stop: 10/06/24 06:29 Last Admin: 09/14/24 05:49 Dose: 175 mcg Oxycodone HCl (Oxycodone Hcl Ir 5 Mg Tab (Immediate Release)) 5 mg PO Q4H PRN PRN Reason: Pain Stop: 09/20/24 04:14 Last Admin: 09/14/24 05:48 Dose: 5 mg Polyethylene Glycol (Polyethylene (Miralax) 17 Gm Pack) 17 gm PO DAILY PRN PRN Reason: Constipation Stop: 10/11/24 21:47 Last Admin: 09/12/24 08:37 Dose: 17 gm Prenat Multivit/[place]/Iron/Folic Ac ( Vitamin 1 Tab) 1 tab PO DAILY [facility] Stop: 10/06/24 08:59 Last Admin: 09/13/24 08:55 Dose: 1 tab Sodium Chloride (Sodium Chlor 7% 4 Ml Neb) 4 ml NEB BIDR [facility] Stop: 10/06/24 18:59 Last Admin: 09/14/24 07:21 Dose: 4 ml
[2024-09-14] MEDS ORDERED: ALBUT/IPRATROP 3MG/0.5MG NEB 3 ML VIAL NEB PRN (09:17)
[2024-09-14] MEDS: AMPICILLIN/SULBACTAM SOD 3,000 MG/100 ML BAG IV SCH (11:42)
[2024-09-15 06:23] LABS: Hematocrit (blood only) 29.6 % (37.0-47.0); Hemoglobin 9.8 g/dl (12.0-16.0); Mean Corpuscular Hemoglobin 28.3 pg (25.0-34.0); Mean Corpuscular Hgb Conc 33.1 g/dL (32.0-36.0); Mean Corpuscular Volume 85.5 fL (80.0-100.0); Mean Platelet Volume 8.8 fL (9.4-12.4); Platelet Count 554 K/uL (130-400); RDW Coefficient of Variation 12.6 % (11.5-14.5); RDW Standard Deviation 39.2 fL (36.4-46.3); Red Blood Count 3.46 M/uL (4.20-5.40); White Blood Count 12.61 K/ul (4.8-10.8)
[2024-09-15 06:47] LABS: BUN Creatinine Ratio 12.5 (10-20); Calcium 9.1 mg/dl (8.6-10.3); Magnesium 2.1 mg/dl (1.7-2.4); Phosphorus 4.4 mg/dl (2.5-4.9); Potassium 4.3 mmol/L (3.5-5.1)
[2024-09-15 07:11] VITALS: RESP 16
[2024-09-15 09:17] VITALS: BP 108/75; TEMP 99; O2SAT 96
--- NOTE | 2024-09-15 11:28 | Discharge Summary ---
Date of Service September 15, 2024 Admission HPI Per Admitting Provider History obtained from patient, family, and records. Medical history significant for hypothyroidism, gestational DM. 1 week history of dry cough symptoms associated with fever, chills and lightheadedness. 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 Patient seen at local urgent care center a few days ago. Tested positive for flu. Sent home with instructions to rest and increase IV fluid. Worsening cough symptoms productive of greenish sputum. Achy pleuritic chest and back pain with worsening SOB. No leg swelling or fluid retention. Poor appetite with nausea emesis episode. Denies aspiration. Decadron, neb treatment, and Zosyn administered at the ER. 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 Admission Exam Per Admitting Provider GENERAL: uncomfortable, dysphonic, respiratory distress SKIN: Normal color, warm HEENT: [place] palpebral conjunctivae, no ptosis, dry buccal mucosa NECK : Supple, no tenderness CHEST : Decreased breath sounds, no tenderness HEART : Tachycardic, no obvious murmurs ABDOMEN: Some distention, nontender EXTREMITIES : Minimal LE swelling without LE tenderness, palpable pulses, no other conspicuous deformities noted NEUROLOGIC : Coherent, no facial asymmetry, no other gross focality Principal Diagnosis Sepsis Pneumonia + Influenza Strep bacteremia Discharge Exam Constitutional: WD/WN F in NAD HEENT: NC/AT. Mucous membranes moist. Lungs: minimal rhonchi at left mid lobe, much improved CV: regular Abdomen: Soft, nontender, nondistended Extremities: No significant edema, moves extremities Neuro: awake, alert, answers appropriately, speech fluent, moves extremities Discharge Data Allergies Allergy/AdvReac Type Severity Reaction Status Date / Time No Known Allergies Allergy NONE Verified 12/16/14 19:59 Consultations 09/06/24 03:35 ED Decision to Admit Stat 09/06/24 08:50 Consult Pulmonology Routine 09/08/24 07:23 Consult Infectious Diseases Routine Ordered Studies 09/06/24 04:10 CT angio chest PE protocol Stat FINDINGS: CTA: Heart is normal in size. No pericardial effusion or thoracic aortic aneurysm. No pulmonary emboli identified. CT CHEST: No thyroid nodule. Subcentimeter mediastinal and hilar lymph nodes are likely physiologic. Trace left pleural effusion. No pneumothorax. Lobular septal thickening with patchy consolidative densities noted within the left upper and lower lobes. 2.9 cm centrally cavitary consolidation of the left lower lobe on image 19 series 4. Mild patchy groundglass densities throughout the right lung. Central airways are patent. No acute upper abdominal abnormality. Unremarkable soft tissues. No acute fracture. IMPRESSION: 1. No pulmonary emboli identified. 2. Left lung predominant multifocal pneumonia includes a 2.9 cm centrally cavitary consolidation within the left lower lobe. Findings are suggestive of necrotizing pneumonia. Close follow-up recommended along with sputum analysis. Two-month follow-up chest CT after treatment course suggested. 3. Trace left pleural effusion. 09/11/24 10:16 CT chest diagnostic w con Routine FINDINGS: Heart is normal in size. No pericardial effusion or thoracic aortic aneurysm. No pulmonary emboli identified. No thyroid nodule. Subcentimeter and borderline enlarged mediastinal and hilar lymph nodes are likely physiologic. Small left pleural effusion has mildly increased in size. Trace right pleural effusion. No pneumothorax. Intralobular septal thickening with patchy consolidative densities noted within the left upper and lower lobes. 2.9 cm centrally cavitary consolidation of the left lower lobe on image 115 series 4. Additional consolidation of the left lower lobe demonstrates progressive central cavitation. Mild patchy groundglass densities throughout the right lung. Central airways are patent. No acute upper abdominal abnormality. Unremarkable soft tissues. No acute fracture. IMPRESSION: 1. Mild progression of the cavitary pneumonia throughout the left lung. 2. Trace right and small left pleural effusions have increased in size from prior. 3. Reactive mediastinal and hilar lymphadenopathy. Hospital Course (1) Severe sepsis: (2) Influenza due to identified novel influenza A virus with pneumonia: (3) Streptococcal bacteremia: (4) Cavitary pneumonia: (5) Prediabetes: (6) Pleurisy with influenza: Plan (1) Sepsis: Strep bacteremia + Influenza Secondary to influenza pneumonia with secondary bacterial infection Chest pain secondary to pneumonia rule out PE given risk factors IMPRESSION: 1. No pulmonary emboli identified. 2. Left lung predominant multifocal pneumonia includes a 2.9 cm centrally cavitary consolidation within the left lower lobe. Findings are suggestive of necrotizing pneumonia. Close follow-up recommended along with sputum analysis. Two-month follow-up chest CT after treatment course suggested. 3. Trace left pleural effusion. Admitted to PCU initially, now on Med/Surg floor Blood cultx positive for Strep Repeat blood cultx - negative Initially on Ceftriaxone and Doxycycline, ID consulted switched to Unasyn Tamiflu course Pulmonary med. consulted - 1. Strep pyogenes bacteremia. Per infectious disease consultation. 2. Multifocal pneumonia: Suspect this is related to group A strep as well. Can de-escalate antimicrobials to orals as directed by ID. Discontinue doxycycline 3. Recommend follow-up chest imaging in 2 to 4 weeks. 4. Influenza A: Complete course of Tamiflu. ID consulted - Patient initially presenting to Urgent Care with influenza A infection unfortunately, presenting to the ED several days later with superadded bacterial infection, likely beta Streptococcus group A as seen on blood culture. She remains hemodynamically stable on room air, improving on CTX with sensitivities showing AYDIN penicillin<0.03 -Discontinue Ceftriaxone -Start Unasyn 3g IV q6hrs, will opt to cover anaerobes in setting of cavitation on CT chest -Please obtain repeat bacterial blood culture in the setting of gram positive bacteremia -If blood repeat blood cultures remain negative for 48hrs and patient remains stable then ok to discharge on Augmentin po TID for a total of 4 weeks treatment from 09/06/24 through 10/04/24 -If blood cultures return positive or patient worsens then please reach out to our service for further recommendations 09/10/2024 WBC increased, pt reports not feeling much better will repeat CXR, repeat CBC tmrw AM, if continues to increase will further discuss w/ ID LFTs elevated, no abd. pain, trend LFTs, CMP ordered for tmrw AM CXR - Impression: Slight interval improvement in left lung pneumonia 09/11 Discussed w/ ID again today - recommend to obtain CT chest w/ con to eval for poss. abscess or empyema. Pt in agreement CT showed extensive pneumonia but no abscess formation. Discussed results w/ ID and with pulmonary med. Dr. Egan - expected and will take weeks to resolve 09/12 Pt reports feeling little improved. Walked in hallway. Able to cough some sputum up. 09/13 hypertonic saline seems to help, still difficulty w/ bringing up sputum 09/15 Pt now improved - plan to discharge on PO Augmentin as directed by ID Hyponatremia, hypokalemia, hypomagnesemia secondary to illness Replete and monitor electrolytes now wnl Hypothyroidism, euthyroid as of last year's outpatient TSH current TSH 0.8 Hx of gestational DM as per records. Current A1c 6.3% - follow up as outpt Total Time Total Time Spent Total Time Spent (In Minutes): 40 Discharge Plan Discharge Items Patient Disposition: Home - Self-Care Reason For Visit: SEPSIS,TACHY,FLU Discharge Diagnosis: Sepsis Pneumonia + Influenza Strep bacteremia Activity: Per Instructions section Non-emergency contact: Primary Care Provider Call non-emergency contact if: you have any medication questions and your symptoms worsen Follow-up/Referrals: Lu Martinez PA-C [Primary Care Provider] - 09/23/24 12:00 pm (Date & Time 09/23/2024 12:00 PM Provider: Lu Martinez PA-C [facility] ) Diet: Regular Addtl Attending Provider Instructions: Follow up with your primary care physician, the appointment was scheduled for you for 09/23/2024. Finish antibiotic treatment as prescribed - Augmentin 875/125 three times a day - through October 04, 2024. Continue taking guaifenesin, and using flutter valve, and incentive spirometer. Take probiotics. Pending Studies at Discharge: No Stand-Alone Forms: My [facility] [employer] Holidays, Work/School Release, Smoking Cessation Medications and DC Order Prescriptions: New Advanced Probiotic 625 mg (10 billion cell) Capsule 1 cap PO DAILY Qty: 20 0RF guaifenesin [Mucinex] 600 mg Tablet Extended Release 12hr 600 mg PO Q12 Qty: 30 0RF benzonatate 100 mg Capsule 100 mg PO TID PRN (Reason: cough) Qty: 14 0RF amoxicillin-pot clavulanate 875-125 mg tablet 1 tab PO TID 18 Days Qty: 54 0RF oxycodone 5 mg Tablet 5 mg PO Q4H PRN (Reason: pain) Qty: 5 0RF Continued Multivit/Min/Iron/Fol Ac/Pren ( Vitamin) tablet 1 tab PO DAILY Qty: 0 levothyroxine 175 mcg Tablet 175 mcg PO DAILY Qty: 0 norgestimate-ethinyl estradiol [Tri-Sprintec (28)] 0.18/0.215/0.25 mg-35 mcg (28) tablet 1 tab PO DAILY Discharge Orders: Discharge Order (Routine); Ordered 09/15/24 Ordered By: Placido F. Knab Krames/Other Patient Handouts: Prediabetes, 5 Steps for Eating Healthier Admission Data Admit Date/Time: 09/06/24 03:51 Attending Provider: Placido Trevizo Admit Provider: Db Hough Primary Care Provider: Lu Martinez Other Providers: Db Hough; Jovanni Roth; Sarmad Purcell; Jana oGmez; Norman Dominguez I.; Stuart Borden II; Hali Kelly; Mele Garcia; Bruce Marks; Sandeep Giron; Brock Crenshaw; Chapin Briscoe A
[2024-09-15 13:21] VITALS: PULSE 110
== END 2024-09-15 14:48 | disposition home or self-care (01) | DRG 871 ==
LOC: ED 02:18 → 2S 03:51 → SUATTDRO 03:51 → 2S 05:24 → 3E 09-07 13:27